=== PATIENT | female | born 1940 | race Caucasian/White ===

== ENCOUNTER 2019-11-01 08:18 | Emergency (ER) | payer MEDICARE, OTHER, SELFPAY ==
[2019-11-01 08:26] VITALS: BP 109/52; PULSE 74; RESP 18; TEMP 36.7; O2SAT 98
--- NOTE | 2019-11-01 08:41 | ED.FALL ---
HPI - Fall General Chief Complaint: Fall Stated Complaint: fall, states possible stitches needed lt elbow Time Seen by Provider: 11/01/19 08:26 Source: patient Mode of arrival: Ambulatory History of Present Illness HPI Narrative: 79-year-old woman with a history of hypertension was helping her move some deck furniture and stumbled off a walkway falling and landing on her left elbow suffering a laceration to that elbow and some scratches to her legs. She is not complaining of neck back buttock or hip pain she was able to get up by herself and walk into the emergency department. She states that she was in her usual state of good health until this mechanical tumble. She clearly states she did not hit her head and she is not anticoagulated. She is able to fully extend the left elbow with some tenderness. She is neurovascularly intact. Related Data Home Medications Medication Instructions Recorded Confirmed simvastatin [Zocor] #0 08/23/16 Previous Rx's Medication Instructions Recorded cephalexin [Keflex] 500 mg PO TID #21 cap 11/01/19 Allergies Allergy/AdvReac Type Severity Reaction Status Date / Time amoxicillin [From AUGMENTIN] Allergy Unknown Verified 11/01/19 08:54 clavulanic acid Allergy Unknown Verified 11/01/19 08:54 [From AUGMENTIN] Penicillins [PENICILLINS] Allergy Unknown Verified 11/01/19 08:54 Review of Systems Review of Systems Narrative: Pertinent positive and negative findings as per HPI Remainder of review of systems is otherwise unremarkable for Constitutional: Fevers, chills, weakness ENT: No sore throat, neck pain, ear pain CV: Chest pain, palpitations, dyspnea on exertion Respiratory: Cough, wheeze, dyspnea GI: Nausea, vomiting, diarrhea, change in bowel habits, black or bloody stools : Dysuria, hematuria, flank pain MS: Muscle weakness, numbness, joint swelling or warmth Patient History Medical History (Updated 11/01/19 @ 10:53 by Halle East MD) Hyperlipidemia (Acute) Exam Narrative Exam Narrative: General: Healthy appearing, in no acute distress. Able to give a complete and coherent history. Well-nourished well-developed HEENT: Moist mucous membranes, normal sclera with reactive pupils, Neck: supple, no C-spine tenderness to palpation Respiratory: Lungs are clear to auscultation, no wheezing no rales no rhonchi. Full and symmetrical air movement Cardiac: Regular rate and rhythm no murmurs no bruits Abdomen: Soft nontender good bowel tones, no flank pain Skin: Warm and dry, laceration over the left olecranon, abrasion over the left alberto, minor abrasions posterior left alberto and anterior right alberto Neurologic: Grossly neurologically intact with no obvious asymmetries or abnormalities Extremities: Tender with full range of motion of the left elbow but is able to fully extend and fully flex. No shoulder tenderness on the left side left hand and wrist are unremarkable she is neurovascularly intact. Spine and pelvis: No tenderness to palpation along the thoracic or lumbar spine or with pelvic ring compression Psych: Cooperative, appropriate insight and affect Initial Vital Signs Initial Vital Signs: Vital Signs Temperature 98.0 F 11/01/19 08:26 Pulse Rate 74 11/01/19 08:26 Respiratory Rate 18 11/01/19 08:26 Blood Pressure 109/52 L 11/01/19 08:26 Pulse Oximetry 98 11/01/19 08:26 Procedures Laceration Repair Laceration 1: Site: upper extremity Side (If applicable): left Size (cm): 4 Description: linear Depth: simple, single layer Local Anesthetic: with bicarb Pre-repair: wound explored, irrigated extensively and deep structures intact Skin layer closed with: nylon Size (cm): 4-0 Number of sutures: 6 Technique: simple, interrupted and horizontal mattress Course Orders Ordered: ED Orders 11/01/19 08:49 XR elbow LT min 3V Stat Discontinued Medications Bacitracin (Bacitracin) 5 applic TOP NOW ONE Stop: 11/01/19 08:51 Last Admin: 11/01/19 08:55 Dose: 5 applic Documented by: JOSI Diphtheria/Tetanus/Acell Pertussis (Adacel) 0.5 ml IM .ONCE ONE Stop: 11/01/19 08:50 Last Admin: 11/01/19 08:54 Dose: 0.5 ml Documented by: JOSI Lidocaine/Sodium Bicarbonate (Buffered Lidocaine 5ml Syringe) 5 ml INJ NOW ONE Stop: 11/01/19 08:56 Last Admin: 11/01/19 09:21 Dose: Not Given Documented by: JOSI Lidocaine/Sodium Bicarbonate (Buffered Lidocaine 10 Ml Syr) 10 ml INJ NOW ONE Stop: 06/27/20 09:03 Last Admin: 11/01/19 09:21 Dose: 10 ml Documented by: KDWIGHT Vital Signs Vital signs: Vital Signs - 8 hr 11/01/19 08:26 Temperature 98.0 F Pulse Rate 74 Respiratory Rate 18 Blood Pressure 109/52 L Pulse Oximetry 98 Discharge Plan Departure Patient Disposition: Home Clinical Impression: Laceration Fall Qualifiers: Encounter type: initial encounter Qualified Code(s): W19.XXXA - Unspecified fall, initial encounter Instructions: DI for Laceration Repair -- Simple Activity Restrictions/Additional Instructions: Thank you for coming in today I am so sorry you ended up falling. The cut on your elbow had a small bit of debris that was easily removed with the thorough cleaning that was done prior to putting in the stitches. Carefully examining the wound once it was numb, it does not look like it extends deeper or into the elbow joint. However, there is always a concern for that. Because of this, I am going to suggest that you take 5 days of Keflex, an antibiotic. Please return in 10 days to have the sutures removed There did not seem to be any further damage with your fall but I would not be surprised if you find increasing aches and pains over the next 1-2 days before you start healing fully. If you have any increased pain or difficulty with moving her elbow, increased swelling or pain with moving your fingers or flexing your wrist, you absolutely need to return for further evaluation. I hope you heal quickly Prescriptions: New cephalexin [Keflex] 500 mg capsule 500 mg PO TID Qty: 21 RF: 0 No Action simvastatin [Zocor] 40 MG tablet Qty: 0 RF: 0 Referrals: Henry Mcfadden MD [Primary Care Provider] -
--- NOTE | 2019-11-01 08:49 | DI.RAD.S_ITS ---
PROCEDURE: XR ELBOW LT MIN 3V INDICATIONS: trauma TECHNIQUE: 3 views of the elbow were acquired. COMPARISON: None. FINDINGS: Bones: No fractures or dislocations. No suspicious bony lesions. Soft tissues: No elbow joint effusion. No suspicious soft tissue calcifications. IMPRESSION: No evidence acute bony abnormality of the left elbow. If clinical suspicion and/or symptoms persist, further assessment with repeat plain films, or advanced imaging (e.g., CT, MRI, or bone scan) may be helpful for further assessment. Dictated by: Bienvenido Ansari M.D. on 11/01/2019 at 8:11 Approved by: Bienvenido Ansari M.D. on 11/01/2019 at 8:13
[2019-11-01] MEDS: TET,DIPH,PERTUSS(ACELL),VAC/PF 0.5 ML SYRINGE IM (08:54)
[2019-11-01] MEDS: BACITRACIN OINT 0.9 GM PCKT 5 APPLIC TOP (08:55)
[2019-11-01] MEDS: LIDO 1%/SOD BICARB 8.4% (10ML) 10 ML SYRINGE INJ (09:21)
[2019-11-01 10:58] VITALS: BP 166/69; PULSE 63; O2SAT 97
== END 2019-11-01 11:01 | disposition home or self-care (01) ==
PROVIDERS: Emergency Provider Emergency Medicine; Family Provider Family Medicine; PCP Family Medicine
DX: S51.012A Laceration without foreign body of left elbow, initial encounter (principal); W19.XXXA Unspecified fall, initial encounter; Z23 Encounter for immunization
CPT/HCPCS: 12002; 73080; 90471; 99283; 90715

== ENCOUNTER 2019-11-08 11:21 | Emergency (ER) | payer MEDICARE, OTHER, SELFPAY ==
[2019-11-08 11:50] VITALS: BP 171/82; PULSE 67; RESP 18; TEMP 36.7; O2SAT 96
--- NOTE | 2019-11-08 12:24 | PC.NURSE ---
defer assessment to provider assessment. Unable to visualize wound before patient dressed and discharged.
--- NOTE | 2019-11-08 12:26 | ED_ITS ---
HPI - Wound/Laceration <NAHED Ureña-BC - Last Filed: 11/08/19 14:46> General Chief Complaint: Wound/Laceration Stated Complaint: Leg wounds from last week not healing Time Seen by Provider: 11/08/19 11:43 Source: patient and family Mode of arrival: Family Vehicle Limitations: no limitations History of Present Illness HPI narrative: The patient is an 79-year-old female former smoker who presents with a chief complaint of leg wounds not healing from her fall and visit last week. She states that she is overall very healthy, had a ground level fall and came into the emergency department on 11/01/2019. She has multiple leg abrasions, that she states are becoming infected with spreading redness. She denies any fevers nausea vomiting or diarrhea. She states her tetanus is up-to- date last week. She states that she took antibiotics as prescribed by the previous provider, that she was given a prescription for a week. She has been cleansing her wound several times per day with hydrogen peroxide. The patient states that she is supposed to have her elbow sutures out on Sunday, would like me to do that today possible. Related Data Home Medications Medication Instructions Recorded Confirmed simvastatin [Zocor] #0 08/23/16 Previous Rx's Medication Instructions Recorded cephalexin [Keflex] 500 mg PO TID #21 cap 11/01/19 cephalexin 500 mg PO TID 3 Days #9 cap 11/08/19 Allergies Allergy/AdvReac Type Severity Reaction Status Date / Time amoxicillin [From AUGMENTIN] Allergy Unknown Verified 11/01/19 08:54 clavulanic acid Allergy Unknown Verified 11/01/19 08:54 [From AUGMENTIN] Penicillins [PENICILLINS] Allergy Unknown Verified 11/01/19 08:54 Review of Systems <NAHED Ureña-BC - Last Filed: 11/08/19 14:46> Review of Systems Narrative: GENERAL: Denies chills, fatigue, malaise, fever, sweats. HEENT: Denies sinus pain, ear pain, sore throat, difficulty swallowing, dizziness. RESPIRATORY: Denies dyspnea, cough, wheezing, hemoptysis, sputum. CARDIOVASCULAR: Denies chest pain, palpitations, orthopnea, edema, GASTROINTESTINAL: Denies nausea, vomiting, abdominal pain, diarrhea, constipatio n, melena. : Denies dysuria, frequency, incontinence, hematuria, urinary retention. MUSCULOSKELETAL: denies weakness, joint pain, or bony pain SKIN: See HP NEUROLOGIC: Denies weakness, headache, numbness, change in speech, confusion, seizures, incoordination. PSYCHIATRIC: No concerning psychosocial issues. 12 point review of systems is negative except for those stated above Patient History <BRITNEY Ureña - Last Filed: 11/08/19 14:46> Medical History Hyperlipidemia (Acute) Social History Smoking Status: Former smoker Smoking Status: Former smoker alcohol intake frequency: 0-2 drinks per day Alcohol type: wine Substance Use Type: does not use Exam <BRITNEY Ureña - Last Filed: 11/08/19 14:46> Narrative Exam Narrative: GENERAL: This is a well-nourished, well-developed patient, in no acute distress HEAD: Atraumatic. Normocephalic. No temporal or scalp tenderness. EYES: Pupils equal round and reactive. Extraocular motions intact. No scleral icterus. No injection or drainage. ENT: Nose without bleeding, purulent drainage or septal hematoma. Throat without erythema, tonsillar hypertrophy or exudate. Uvula midline. Airway patent. NECK: Trachea midline. No JVD or lymphadenopathy. Supple, nontender, no meningeal signs. CARDIOVASCULAR: Regular rate and rhythm RESPIRATORY: Clear to auscultation. Breath sounds equal bilaterally. No wheezes, rales, or rhonchi. No cough. No increased respiratory effort. No accessory muscle use. EXTREMITIES: Sutures in place over left elbow, full extension and flexion noted for elbow. Wounds noted on bilateral lower extremities, abrasions noted on medial aspect of left lower leg, two abrasions noted on medial aspect of left lower leg. Superior left lower leg abrasion has 1 cm surrounding erythema, right lower leg abrasion also has 1 cm surrounding erythema. No purulent drainage noted. NEURO: AOx3. SKIN: See extremity exam Initial Vital Signs Initial Vital Signs: Vital Signs Temperature 98.1 F 11/08/19 11:50 Pulse Rate 67 11/08/19 11:50 Respiratory Rate 18 11/08/19 11:50 Blood Pressure 171/82 H 11/08/19 11:50 Pulse Oximetry 96 11/08/19 11:50 <Luis Alfredo Gordon MD - Last Filed: 11/09/19 07:24> Initial Vital Signs Initial Vital Signs: Vital Signs Temperature 98.1 F 11/08/19 11:50 Pulse Rate 67 11/08/19 11:50 Respiratory Rate 18 11/08/19 11:50 Blood Pressure 171/82 H 11/08/19 11:50 Pulse Oximetry 96 11/08/19 11:50 Course <BRITNEY Ureña - Last Filed: 11/08/19 14:46> Orders Ordered: ED Orders 11/08/19 11:51 Wound Culture and Gram Stain Stat Vital Signs Vital signs: Vital Signs - 8 hr 11/08/19 11:50 Temperature 98.1 F Pulse Rate 67 Respiratory Rate 18 Blood Pressure 171/82 H Pulse Oximetry 96 <Luis Alfredo Gordon MD - Last Filed: 11/09/19 07:24> Orders Ordered: ED Orders 11/08/19 11:51 Wound Culture and Gram Stain Stat Vital Signs Vital signs: Vital Signs - 8 hr 11/08/19 11:50 Temperature 98.1 F Pulse Rate 67 Respiratory Rate 18 Blood Pressure 171/82 H Pulse Oximetry 96 MDM - Wound/Laceration <BRITNEY Ureña - Last Filed: 11/08/19 14:46> MDM Narrative Medical decision making narrative: The patient is an 79-year-old female who presents with a chief complaint of wound is not healing. She also requested that I remove her sutures that are supposed to be removed on Sunday. Given that these are over the joint, encouraged her to wait until the sutures are supposed to come out due to the increased tension. She is amendable to this. Given the surrounding redness from her abrasions, these might be due to being copiously cleansed with hydrogen peroxide as that can be caustic to wounds. However given her exam of increasing redness, I did extend her course of t reatment with Keflex to a full 10 day course. I discussed at length not using hydrogen peroxide, keeping her wounds clean and dry, not soaking them, not submerging in dirty water. Encouraged follow-up with primary care provider as well as monitoring for signs and symptoms of systemic infection including inability keep down fluids, high fevers etcetera. Patient has been of no questions or concerns upon discharge and state understanding of return precautions as well as follow-up care. Discharge Plan Departure Patient Disposition: Home Clinical Impression: Abrasion, Wound infection Discharge Date/Time: 11/08/19 12:23 Instructions: DI for Wound Infection Activity Restrictions/Additional Instructions: Thank you for trusting us with your care today. I am sorry that you fell, it appears as though your elbow was healing well. I am sorry that your leg abrasions are not healing very well at this point. I sent a prescription to [facility] to continue antibiotics for a few more days. We have a wound culture pending, we will call this results if we need to change your antibiotics. Please stop using hydrogen peroxide as this is very abrasive on wounds. This can actually impede wound healing. Please take a probiotic or yogurt with the antibiotic. Please wash her wounds with soap and water. Do not soak them in anything, do not expose them to dirty water including pool water Simeon water etcetera. Please monitor for fever etcetera come back to the emergency department for any acute concerns Prescriptions: New cephalexin 500 mg capsule 500 mg PO TID 3 Days Qty: 9 RF: 0 No Action simvastatin [Zocor] 40 MG tablet Qty: 0 RF: 0 cephalexin [Keflex] 500 mg capsule 500 mg PO TID Qty: 21 RF: 0 Referrals: Henry Mcfadden MD [Primary Care Provider] -
== END 2019-11-08 12:23 | disposition home or self-care (01) ==
PROVIDERS: Emergency Provider Nurse Practitioner Family; Family Provider Family Medicine; PCP Family Medicine
DX: T81.89XA Other complications of procedures, not elsewhere classified, initial encounter (principal); S80.812A Abrasion, left lower leg, initial encounter
CPT/HCPCS: 87070; 87205; 99281; 99282

== ENCOUNTER 2019-11-11 07:37 | Emergency (ER) | payer MEDICARE, OTHER, SELFPAY ==
[2019-11-11 07:43] VITALS: BP 160/67; PULSE 66; RESP 14; TEMP 37.1; O2SAT 97; BMI 27.4
--- NOTE | 2019-11-11 07:55 | ED.RECABL ---
HPI - Recheck/Abnormal Lab/Rx General Chief Complaint: Recheck/Abnormal Lab/Rx Stated Complaint: STITCHES REMOVAL,CHECK ON LEGS Time Seen by Provider: 11/11/19 07:55 Source: patient Mode of arrival: Ambulatory History of Present Illness HPI narrative: The patient is an 79-year-old female who presents will for suture removal. She had 4 sutures placed on her left elbow 11/01/2019. Has been move some deck furniture when she stumbled off and cut herself. She also had some lower extremity leg wounds she was concerned they might be infected. She was here on November 07 for re-evaluation and started on Keflex. She has been keeping the areas clean and dry with no bandage. However there is still some surrounding erythema and is worried it still might be infected. She denies any fever sweats or chills. She has no complaints about her elbow. MD complaint: suture/staple removal Initial visit (ago): week(s) Initial visit for: laceration Returns today for: staple/stitch removal and wound recheck Related Data Home Medications Medication Instructions Recorded Confirmed simvastatin [Zocor] #0 08/23/16 Previous Rx's Medication Instructions Recorded cephalexin [Keflex] 500 mg PO TID #21 cap 11/01/19 Allergies Allergy/AdvReac Type Severity Reaction Status Date / Time amoxicillin [From AUGMENTIN] Allergy Unknown Verified 11/11/19 07:42 clavulanic acid Allergy Unknown Verified 11/11/19 07:42 [From AUGMENTIN] Penicillins [PENICILLINS] Allergy Unknown Verified 11/11/19 07:42 Review of Systems Review of Systems Narrative: GENERAL: Denies chills,fever HEENT: Denies throat pain RESPIRATORY: Denies dyspnea, cough, wheezing CARDIOVASCULAR: Denies chest pain, palpitations GASTROINTESTINAL: Denies nausea, vomiting MUSCULOSKELETAL: Denies extremity pain, injury SKIN: See HPI NEUROLOGIC: Denies weakness, dizziness, headache, numbness 8 point review of systems is negative except for those stated above and HPI Patient History Medical History Hyperlipidemia (Acute) Social History Smoking Status: Former smoker Smoking Status: Former smoker alcohol intake frequency: 0-2 drinks per day Alcohol type: wine Substance Use Type: does not use Exam Initial Vital Signs Initial Vital Signs: Vital Signs Temperature 98.7 F 11/11/19 07:43 Pulse Rate 66 11/11/19 07:43 Respiratory Rate 14 11/11/19 07:43 Blood Pressure 160/67 H 11/11/19 07:43 Pulse Oximetry 97 11/11/19 07:43 GENERAL: Well-appearing, well-nourished and in no acute distress. CARDIOVASCULAR: peripheral pulses in tact, cap refill <2 sec RESPIRATORY: No respiratory distress, speaks in full sentences without difficulty EXTREMITIES: Normal range of motion, no clubbing or edema. Neurovascularly intact NEUROLOGICAL: Cranial nerves II through XII grossly intact. Normal gait and speech. SKIN: Left elbow wound has healed no sign of infection sutures are easily removed. The legs are also waited she has wound on her left lower leg and 2 small areas on her right leg. All areas are scabbed over there is some mild local surrounding erythema no gross pus no streaking or circumferential redness Course Vital Signs Vital signs: Vital Signs - 8 hr 11/11/19 07:43 Temperature 98.7 F Pulse Rate 66 Respiratory Rate 14 Blood Pressure 160/67 H Pulse Oximetry 97 MDM - Recheck/Abnormal Lab/Rx MDM Narrative Medical decision making narrative: Wounds all seem to be healing appropriately at this time I recommend continuing Keflex Discharge Plan Departure Patient Disposition: Home Clinical Impression: Encounter for removal of sutures Discharge Date/Time: 11/11/19 08:15 Instructions: DI for Suture Removal Activity Restrictions/Additional Instructions: *You have been diagnosed with suture removal *What to do: At this time wounds appear to be healing I recommend that he finish in continue Keflex as previously prescribed keep areas clean and dry with soap and water may apply antibiotic ointment 1-2 times daily *Continue to take medications as directed *Follow up with your primary care provider in 2-3 days *Return to ER if you should have fevers sweats chills increasing redness or any new, worsening or concerning symptoms Prescriptions: No Action simvastatin [Zocor] 40 MG tablet Qty: 0 RF: 0 cephalexin [Keflex] 500 mg capsule 500 mg PO TID Qty: 21 RF: 0
== END 2019-11-11 08:15 | disposition home or self-care (01) ==
PROVIDERS: Emergency Provider Emergency Medicine; Family Provider Family Medicine
DX: Z48.1 Encounter for planned postprocedural wound closure (principal)
CPT/HCPCS: 99281

== ENCOUNTER 2021-02-23 14:37 | Emergency (ER) | payer MEDICARE, OTHER, SELFPAY ==
[2021-02-23 14:50] VITALS: BP 162/69; PULSE 54; RESP 14; TEMP 36.3; O2SAT 98; BMI 28.7
--- NOTE | 2021-02-23 14:56 | DI.RAD.S_ITS ---
PROCEDURE: XR HAND RT MIN 3V INDICATIONS: Right wrist and hand pain TECHNIQUE: 3 views of the hand(s) acquired. COMPARISON: None. FINDINGS: Bones: No fractures or dislocations. Diffuse mild joint space loss with osteophytosis, most prominent involving the distal interphalangeal joints. Carpal bones are normally aligned. No suspicious bony lesions. Minimal cortical irregularity of the radial styloid, compatible with remote injury. Soft tissues: No suspicious soft tissue calcifications. IMPRESSION: No acute osseous abnormality. Dictated by: Se Moran M.D. on 02/23/2021 at 16:30 Approved by: Se Moran M.D. on 02/23/2021 at 16:32
--- NOTE | 2021-02-23 14:56 | DI.RAD.S_ITS ---
PROCEDURE: XR WRIST RT MIN 3V INDICATIONS: wrist and hand pain/NON INJURY TECHNIQUE: 4 views of the wrist were acquired. COMPARISON: None. FINDINGS: Bones: No fractures or dislocations. No suspicious bony lesions. Mild triscaphe joint space narrowing and subchondral sclerosis. Scaphoid view: Unremarkable Soft tissues: No suspicious soft tissue calcifications. IMPRESSION: Mild intercarpal osteoarthritis. No fracture or foreign body. Approved by: Miguel Inman M.D. on 02/23/2021 at 14:57
--- NOTE | 2021-02-23 15:58 | ED.UPPEXIN ---
HPI - Extremity Injury (Upper) <SHADIA Troncoso - Last Filed: 02/23/21 19:57> General Chief Complaint: Extremity Injury, Upper Stated Complaint: RT hand pain Time Seen by Provider: 02/23/21 15:23 Source: patient Mode of arrival: Ambulatory Limitations: no limitations History of Present Illness HPI narrative: 80 year old right-handed female presents to the emergency department for right thumb and right wrist pain which has been present for 1 month. She reports that this feels like an overuse injury as her pain is worse after activity like gardening and chores and she stays very active. She reports that the pain goes from her proximal metacarpal up the radial side of her wrist. She states that she does have a history of osteoarthritis, does not know if she has bone scan in the past. She denies having any weakness in her right upper extremity, she does endorse having some numbness and tingling after a lot of activity in the 1st through 3rd digits. She reports that her pain and symptoms are better with rest, it worsens with activity. This is affecting her quality of life. MD complaint: injury to: right Handedness: right Place: home Severity: moderate Severity scale (1-10): 5 Relieving factors: immobilization and rest Exacerbating factors: movement of extremity Related Data Home Medications Medication Instructions Recorded Confirmed simvastatin 40 mg tablet (Zocor) #0 08/23/16 Previous Rx's Medication Instructions Recorded cephalexin 500 mg capsule (Keflex) 500 mg PO TID #21 cap 11/01/19 Allergies Allergy/AdvReac Type Severity Reaction Status Date / Time amoxicillin [From AUGMENTIN] Allergy Unknown Verified 02/23/21 14:52 clavulanic acid Allergy Unknown Verified 02/23/21 14:52 [From AUGMENTIN] Penicillins [PENICILLINS] Allergy Unknown Verified 02/23/21 14:52 Review of Systems <SHADIA Troncoso - Last Filed: 02/23/21 19:57> Review of Systems Narrative: General: denies fever, chills Head/Neck: denies headache, neck pain, Eyes: denies visual changes, eye pain Cardio: denies chest pain, palpitations Respiratory: denies shortness of breath, cough GI: denies abdominal pain, or diarrhea : denies dysuria, hematuria MSK: Complains of right proximal thumb pain and right wrist pain, denies muscle weakness Skin: denies rash, itching Neuro: denies numbness, tingling Patient History <SHADIA Troncoso - Last Filed: 02/23/21 19:57> Medical History Hyperlipidemia Social History Smoking Status: Former smoker Smoking Status: Former smoker alcohol intake frequency: holidays/special occasions only Alcohol type: wine Substance Use Type: does not use Exam <SHADIA Troncoso - Last Filed: 02/23/21 19:57> Narrative Exam Narrative: Independently reviewed vitals signs and nursing notes. General: Awake, alert, nontoxic, no cardiorespiratory distress Head/Neck: Atraumatic, neck full range of motion Eyes: EOMI, conjunctiva normal Nose: nares patent, no rhinorrhea Mouth/Throat: moist mucus membranes, posterior pharynx normal, no oral lesions Cardio: Regular rate and rhythm, no peripheral edema Respiratory: respirations unlabored without wheezing, stridor, or rales. No retractions. GI: Abdomen soft, nontender MSK: Moves all extremities, neurovascularly intact, no limitations to ROM on right upper extremity, no numbness or tingling during exam, capillary refill less than 2 seconds on all fingers, mild amount of edema over distal radial head where it meets the carpal bones. Right wrist is nontender to palpation, no pain at snuffbox, no suspicion for tendon injury Skin: Normal capillary refill, no rash Neuro: Normal speech and cognition, normal gait Initial Vital Signs Initial Vital Signs: Vital Signs Temperature 97.4 F L 02/23/21 14:50 Pulse Rate 54 L 02/23/21 14:50 Respiratory Rate 14 02/23/21 14:50 Blood Pressure 162/69 H 02/23/21 14:50 Pulse Oximetry 98 02/23/21 14:50 <Francisco J Hobson DO - Last Filed: 02/24/21 18:43> Initial Vital Signs Initial Vital Signs: Vital Signs Temperature 97.4 F L 02/23/21 14:50 Pulse Rate 54 L 02/23/21 14:50 Respiratory Rate 14 02/23/21 14:50 Blood Pressure 162/69 H 02/23/21 14:50 Pulse Oximetry 98 02/23/21 14:50 Procedures <SHADIA Troncoso - Last Filed: 02/23/21 19:57> Orthopedic Splinting/Casting Injury #1: Side: right Upper Extremity Injury Location: wrist Upper Extremity Immobilizer: wrist splint Post splinting neuro exam: intact Post splinting vascular exam: intact Placed by: Nursing Course <SHADIA Troncoso - Last Filed: 02/23/21 19:57> Orders Ordered: Discontinued Medications Ibuprofen (Ibuprofen 400 Mg Tablet) 600 mg PO NOW ONE Stop: 02/23/21 16:06 Last Admin: 02/23/21 16:18 Dose: 600 mg Documented by: KATE Vital Signs Vital signs: Vital Signs - 8 hr 02/23/21 14:50 02/23/21 16:43 Temperature 97.4 F L Pulse Rate 54 L 53 L Respiratory Rate 14 Blood Pressure 162/69 H 157/65 H Pulse Oximetry 98 99 <Francisco J Hobson DO - Last Filed: 02/24/21 18:43> Orders Ordered: Discontinued Medications Ibuprofen (Ibuprofen 400 Mg Tablet) 600 mg PO NOW ONE Stop: 02/23/21 16:06 Last Admin: 02/23/21 16:18 Dose: 600 mg Documented by: KATE Vital Signs Vital signs: Vital Signs - 8 hr 02/23/21 14:50 02/23/21 16:43 Temperature 97.4 F L Pulse Rate 54 L 53 L Respiratory Rate 14 Blood Pressure 162/69 H 157/65 H Pulse Oximetry 98 99 MDM - Extremity Injury (Upper) <SHADIA Troncoso - Last Filed: 02/23/21 19:57> Imaging Data Extremity x-ray #1: Radiologist's Impression: PROCEDURE: XR HAND RT MIN 3V INDICATIONS: Right wrist and hand pain TECHNIQUE: 3 views of the hand(s) acquired. COMPARISON: None. FINDINGS: Bones: No fractures or dislocations. Diffuse mild joint space loss with osteophytosis, most prominent involving the distal interphalangeal joints. Carpal bones are normally aligned. No suspicious bony lesions. Minimal cortical irregularity of the radial styloid, compatible with remote injury. Soft tissues: No suspicious soft tissue calcifications. IMPRESSION: No acute osseous abnormality. Dictated by: Se Moran M.D. on 02/23/2021 at 16:30 Approved by: Se Moran M.D. on 02/23/2021 at 16:32 Extremity x-ray #2: Radiologist's Impression: PROCEDURE: XR WRIST RT MIN 3V INDICATIONS: wrist and hand pain/NON INJURY TECHNIQUE: 4 views of the wrist were acquired. COMPARISON: None. FINDINGS: Bones: No fractures or dislocations. No suspicious bony lesions. Mild triscaphe joint space narrowing and subchondral sclerosis. Scaphoid view: Unremarkable Soft tissues: No suspicious soft tissue calcifications. IMPRESSION: Mild intercarpal osteoarthritis. No fracture or foreign body. Approved by: Miguel Inman M.D. on 02/23/2021 at 14:57 MDM Narrative Medical decision making narrative: 80-year-old female presents to the emergency department for right thumb and wrist pain that has been bothersome after heavy use for 1 month. Right hand and right wrist x-rays show no fractures or dislocations, diffuse mild joint space loss with osteophytosis, mild intercarpal osteoarthritis without fractures. This is most likely osteoarthritis related to overuse although tendinitis is also high my differential. Recommended patient to follow-up with her PCP for follow-up and further evaluation of her symptoms. Differential also includes gout, septic arthritis although very low suspicion for that. There are no signs of flexor tenosynovitis, none of [place] signs are present, in that, the affected hand/wrist is not held in flexion. The hand/wrist is not uniformly swollen over the affected tendons. There is no tenderness over the palpated tendon. There is no pain on passive extension of the affected fingers, hand or wrist. Patient is appropriate and amenable to discharge home. Vital signs are stable on repeat examination is unremarkable. Patient has been informed of results. Patient has been given strict return to ER precautions for any new or worsening symptoms. Patient understands to follow up closely with outpatient providers as instructed. Patient understands plan and agrees to discharge home. All questions and concerns answered at this time. Discharge Plan Departure Patient Disposition: Home Clinical Impression: Osteoarthritis of wrist and hand due to and not concurrent with trauma Instructions: DI for Osteoarthritis Activity Restrictions/Additional Instructions: *You have been diagnosed with osteoarthritis of your wrist and thumb joint. Because your hand x-rays not back from the radiologist yet I cannot say for sure that there is no fracture in your hand however it does not appear that there is a fracture on my read. I think that these are both painful areas related to osteoarthritis, ibuprofen and wearing a wrist splint can be most helpful, as well as using ice intermittently or after heavy use. Please try to have food when you take ibuprofen to prevent an ulcer. Follow-up with your primary care provider about other ways to prevent flares of this pain. *What to do: *Please continue to take your regular medications as directed. [ ] New medication prescriptions sent to your pharmacy: [ ] [ ] New medication written as a paper prescription [ x] No new medications given *Please follow up with your primary care provider in 2-3 days, call for an appointment. Let them know you were seen in the Emergency Department and that we ask that you be seen in follow up. We will electronically transmit a record of today's note if your PCP is in our system *If you do not have a primary care provider please contact the [facility] Resource line at [phone]. They will ask some questions about your medical history and help get you set up with a doctor in the community. *Return to Emergency Department if you should have any new, worsening or concerning symptoms, such as [fever greater than 101F, chills, worsening pain, persistent vomiting or other bothersome symptoms] PROCEDURE: XR WRIST RT MIN 3V INDICATIONS: wrist and hand pain/NON INJURY TECHNIQUE: 4 views of the wrist were acquired. COMPARISON: None. FINDINGS: Bones: No fractures or dislocations. No suspicious bony lesions. Mild triscaphe joint space narrowing and subchondral sclerosis. Scaphoid view: Unremarkable Soft tissues: No suspicious soft tissue calcifications. IMPRESSION: Mild intercarpal osteoarthritis. No fracture or foreign body. Prescriptions: No Action simvastatin [Zocor] 40 MG tablet Qty: 0 RF: 0 cephalexin [Keflex] 500 mg capsule 500 mg PO TID Qty: 21 RF: 0 Referrals: Peace Dhillon MD [Primary Care Provider] - <Francisco J Hobson DO - Last Filed: 02/24/21 18:43> [facility]ign [facility] Attestation: Dr Hobson Co-Sign Statement: I was available for consultation during this patient's emergency department visit. This chart is signed by myself for administrative purposes only. I did not have direct contact with this patient during this visit. They were seen independently by the APC.
[2021-02-23] MEDS: IBUPROFEN 400 MG TABLET 600 MG PO (16:18)
[2021-02-23 16:43] VITALS: BP 157/65; PULSE 53; O2SAT 99
== END 2021-02-23 16:43 | disposition home or self-care (01) ==
PROVIDERS: Emergency Provider Nurse Practitioner Critical Care Medicine; Family Provider Internal Medicine; PCP Internal Medicine
DX: M19.031 Primary osteoarthritis, right wrist (principal); M19.041 Primary osteoarthritis, right hand
CPT/HCPCS: 73110; 73130; 99283; 99284

== ENCOUNTER 2021-05-16 09:00 | Outpatient (RCR) | payer MEDICARE, OTHER, SELFPAY ==
--- NOTE | 2021-02-17 15:48 | PT.OIE ---
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) Dorsalgia, unspecified (02/17/21) Muscle weakness (generalized) (02/17/21) Unsteadiness on feet (02/17/21) Past Medical History (Last Reviewed 11/11/19 @ 07:59 by Grace Jiang DO) Hyperlipidemia Visit Care Team Role Provider Type Peace Dhillon MD Attending Provider Non-Staff Family Provider Primary Care Provider Referring Provider Specialty: Internal Medicine Address: [address] [place] [address], [facility] Email: Physical Therapy Initial Evaluation PT-OP-A Visit Information Start: 02/14/21 17:54 Freq: Status: Active Protocol: Document 02/17/21 13:33 LRN (Rec: 02/17/21 15:44 LRN [id number]) Out-Patient Physical Therapy Visit Information Visit Information Visit Type Initial Evaluation Visit Start Time 13:33 Visit Stop Time 14:39 Total Visit Minutes 56 Visit Number 1 Evaluation Information Evaluation Date 02/17/21 Precautions Precautions Arthritis, back pain, neck pain, falls PT-OP-B Current Condition Start: 02/14/21 17:54 Freq: Status: Active Protocol: Document 02/17/21 13:33 LRN (Rec: 02/17/21 15:44 LRN [id number]) Current Condition History of Current Condition Onset Date 6 months ago Current Complaints Pain across the low back, Can 't sleep, poor balance. History of Current Condition Pain in middle lower back started due to repetitive lifting when trying to help finish building a house (tasks such as painting & vacuuming) and from gardening. Has had X-rays taken at [facility], but report unavailable. Pt reports her lower mid back pain radiates across the back and that it is very limiting in activity. She states her pain is less after doing back exercises that her , a retired neurologist, showed her. She takes Tylenol and an allergy medication for the pain. Has tired ice/heat, and heat seems to be more helpful. Pt requests therapy for her balance. States her balance as of 5 yrs ago is also a problem because she is older and too physically active. Last fall being a yr ago while working on her house and carrying a heavy bench and stepping backwards. Prior Treatments and Tests X-rays at [facility], unavailable. Future Testing and Treatments Planned None Developmental History Developmental History Has severe osteoporsis. Was building a house and was doing gardening for the past year, but the pain started worsening in the past 6 months. Has issue with R hand (dominant hand). Complains of a more noteable bruise on R distal forearm after wearing a wrist brace, and R thumb pain. Pt states she is planning on getting it looked at. Treatment Goals Patient/Caregiver Goals Get in better shape and strengthen the body. Walking can be painful. Sleep through the night without waking due to back pain. Prior Functional Status Baseline Function- Gait Walked 3-5 miles ~ [address] [place] e-5 days a week. Baseline Function- Recreation/Hobbies Gardening. Baseline Function- Other Slept through the night 8-9 hrs/night. Home exercise program shown by spouse (who was a physician - neurologist) - 30 minute program. Current Functional Impairments (Reported) Functional Limitations- ADL's Waking 3-4x/night due to back pain, but able to go back to sleep. Walking 3x/week in neighborhood with 1-2 hills, ~ 1 hr. Personal Factors Other Personal Factors That May Effect Reportedly severe Osteoporosis Therapy/Recovery , Cleans own house (vacuuming that makes pain worse). PT-OP-C Subjective Start: 02/14/21 17:54 Freq: Status: Active Protocol: Document 02/17/21 13:33 LRN (Rec: 02/17/21 15:44 LRN [id number]) Patient Questionnaires Oswestry Low Back Index Oswestry Score 24 Oswestry Impairment 20 to 39% Impaired (Score 20- 39) OP-PT Pain Assessment Pain Assessment Grid Paper Pain Assessment Grid Completed Yes Location Lower Thoracic Pain Location Details Lower thoracic spine across the back, pain ranges 2-7/10 Intensity 7 Scale Used Numeric (0 - 10) Description Aching,Sharp Frequency Intermittent Pain Aggravating Factors Activity Other Pain Aggravating Factors Vacuuming Pain Alleviating Factors Heat,Medication PT-OP-G Mobility & Gait Start: 02/14/21 17:54 Freq: Status: Active Protocol: Document 02/17/21 13:33 LRN (Rec: 02/17/21 15:44 LRN [id number]) Stair Climbing Evaluation Comments Stair Climbing Comments Normal, uses 1 railing. PT-OP-H Neuro Start: 02/14/21 17:54 Freq: Status: Active Protocol: Document 02/17/21 13:33 LRN (Rec: 02/17/21 15:44 LRN [id number]) Sensation Evaluation Gross Sensation Gross Sensation WNL Comments Summary Comments Pt complains of tingling in lower legs and feet. Deep Tendon Reflex & Clonus Assessment Deep Tendon Reflex Right Achilles Deep Tendon Reflex 2+ Normal Left Achilles Deep Tendon Reflex 2+ Normal Right Patellar Deep Tendon Reflex 2+ Normal Left Patellar Deep Tendon Reflex 2+ Normal PT-OP-J Posture/Palpation/Skin Start: 02/14/21 17:54 Freq: Status: Active Protocol: Document 02/17/21 13:33 LRN (Rec: 02/17/21 15:44 LRN [id number]) Posture Evaluation Position Standing T-Spine Posture Flattened L-Spine Posture Increased Lordosis,Shifted Left Shoulder Posture (R) Elevated Scapula Posture (R) Elevated Comments Posture Comments Decreased T/S and mild increase L/S curvature. Palpation Assessment Location Low Back Palpation Location In Prone: Lower T/S & L/S spine; QL, Paraspinals, SIJ. Palpation Findings Soft Tissue Tightness, Tenderness Palpation Details Assessed in Prone: Decreased T/S curvature, Tender PA of spinous processes of T11, T12 and mildly lumbar spine. Pelvis & lumbar spine is in L rotation (L SIJ is set deep). L2, L3 C-curve with apex on left. PT-OP-K Range of Motion Start: 02/14/21 17:54 Freq: Status: Active Protocol: Document 02/17/21 13:33 LRN (Rec: 02/17/21 15:44 LRN [id number]) Lumbar Spine Range of Motion Lumbar Spine Active Degrees Testing Position Standing Flexion 40 Extension 10 Rotation Left 3 Rotation Right 5 Lateral Flexion Left 10 Lateral Flexion Right 3 ROM Limitations Pain Comments Trunk flex is 40 deg's with 30 deg's hip Flexion Trunk Ext is 10 deg's 3 deg's hip Extension Hip Goniometric Range of Motion Hip Right Passive Hip ROM WFL No Testing Position Supine Flexion w/Knee Flexed 115 Straight Leg Raise 40 Internal Rotation 30 External Rotation 20 Left Passive Hip ROM WFL Yes Testing Position Supine Flexion w/Knee Flexed 120 Straight Leg Raise 60 Internal Rotation 25 External Rotation 60 PT-OP-L Special Tests Start: 02/14/21 17:54 Freq: Status: Active Protocol: Document 02/17/21 13:33 LRN (Rec: 02/17/21 15:44 LRN [id number]) Special Tests Lumbar Spine Special Tests Jed Test Results + bilaterally Comments Indicates tight hip flexors Straight Leg Raise Test Results Positive left side Comments 40 deg's left, 80 deg's right, . indicates possible disc involvement PT-OP-M Strength Start: 02/14/21 17:54 Freq: Status: Active Protocol: Document 02/17/21 13:33 LRN (Rec: 02/17/21 15:44 LRN [id number]) Trunk Strength Trunk Manual Muscle Testing Testing Position Supine Core Stabilization Pt not able to maintain core stabilithy with LE MMT. Hip Strength Hip Manual Muscle Testing Right Flexion (L2) 3 Fair Extension (S1) 5 Normal Abduction 3+ Fair+ Left Flexion (L2) 5 Normal Extension (S1) 5 Normal Abduction 5 Normal Adduction 5 Normal Knee Strength Knee Manual Muscle Testing Right Comments Generally 5/5 Left Comments Generally 5/5 Ankle/Foot Strength Ankle and Foot Manual Muscle Testing Right Comments Generally 5/5 Left Comments Generally 5/5 PT-OP-Q Treatments Start: 02/14/21 17:54 Freq: Status: Active Protocol: Document 02/17/21 13:33 LRN (Rec: 02/17/21 15:44 LRN [id number]) Self-Care/Home Management Treatment Education Other Education Pt educated in results of evaluation. Discussed at length goals and plan of care. Pt requests for most of this month that her therapy be only 1x/week, but afterwards can be 1-2x/week with reasons being her availability to being in town and possible visitors during the holidays. PT-OP-T Assessment and Plan Start: 02/14/21 17:54 Freq: Status: Active Protocol: Document 02/17/21 13:33 LRN (Rec: 02/17/21 15:44 LRN [id number]) Physical Therapy Assessment Rehab Potential Rehabilitation Potential Good Evaluation Complexity Number of Personal Factors/Comorbidities 1-2 Number of Body Systems Impaired 4 or More Clinical Presentation at Evaluation Evolving Impairments Impairments Activity Tolerance,Balance, Functional Activities,Pain, Posture,ROM,Sensation,Soft Tissue Mobility,Strength, Transfers Goals Four Impairment Decreased balance making the pt at risk of falling Impairment MANDO = 24; 20-39% impaired function. Single Leg Stance (SLS) w/EO/ hands across chest, wearing tennis shoes is 2 right, 7 left. Short Term Goal (STG) Improve pt's SLS Ability by 10 secs with hands across her chest, wearing tennis shoes. STG Duration 03/17/21 Longterm Goal (LTG) Pt will be able to imiprove SLS to 14 secs (norm for 70-79 yo's with EO 14 secs). LTG Duration 05/18/21 Three Impairment Decreased ability to actively exercise for her health, due to back pain. Short Term Goal (STG) Iimprove pt awareness of proper movement with her HEP to prevent increased back pain and dysfunction with exercise . STG Duration Scrap Hoist Operator Goal (LTG) Walked 3-5 miles ~ [address] 3-5 days a week. LTG Duration 05/18/21 Two Impairment Back pain interrupts sleep at night (wakes 3-5x/night). Short Term Goal (STG) Pt educated in sleeping positons to decrease number of times she wakes at night. STG Duration 02/23/21 Longterm Goal (LTG) Improve abdominal strength with pt able to maintain core stability with movement and resistance to LE's in supine in order for the pt to be able to sleep through the night without waking due to back pain. LTG Duration 05/18/21 One Impairment Lacks appropriate self care HEP. Short Term Goal (STG) Pt will be educated in proper body mechanics for ADLs and transfers. STG Duration 03/03/21 Longterm Goal (LTG) Pt will be independent with a self care HEP. 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 She also presents with very limited hip mobility (ext, IR, ER) and weakness of the core and mildly in the R hip. She has pain in her thoracic and lumbar spine to a mild degree, but increased tenderness to posterior to anterior pressure at T11 & T12 . Treatment will be limited to AROM until results of her X -rays can be obtained to rule out history of any spinal fractures. The pt does have decreased SLS balance ability of 3-7 secs, placing her at risk of falling and further injury; therefore the pt will benefit from skilled physical therapy to work towards the above stated goals. Physical Therapy Plan Frequency and Duration Frequency of Treatment 2x/Week Plan of Care Start Date 02/17/21 Plan of Care End Date 05/18/21 Therapeutic Interventions Therapeutic Interventions Aquatic Therapy,Balance Training,Gait Training,Home Exercise Program,Manual Therapy,Neuromuscular Re- education,Patient/Caregiver Education,Self-Care/Home Management,Soft Tissue Mobilization,Therapeutic Activities,Therapeutic Exercises Modalities Cold Pack/Ice Massage,Electric Stimulation,Hot Packs, Ultrasound Next Visit Focus/Plan Next Note Type Treatment Note Next Visit Plan Assess gait; Check Hip ER/IR strength & manual lumbar traction/axial compression; Sleeping posture education/ modification; Modify HEP for possible L/S neural involvement & Sciatic pain; Pt education/training in proper body mechanics for ADLs & transfers; Rboby extension program; Core stabilization program; HEP (SLS, R > L hip ER stretch , Waylon hip IR stretch); RLE neural stretch and Waylon Piriformis stretch, Modalities as needed for pain, Try MH/IFES after exercise if X-rays show no fractures.
--- NOTE | 2021-02-17 15:51 | PT.OPPOC ---
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) Dorsalgia, unspecified (02/17/21) Muscle weakness (generalized) (02/17/21) Unsteadiness on feet (02/17/21) Visit Care Team Role Provider Type Peace Dhillon MD Attending Provider Non-Staff Family Provider Primary Care Provider Referring Provider Specialty: Internal Medicine Address: [address] [place] [address], [facility] Email: Plan Of Care PT-OP-T Assessment and Plan Start: 02/14/21 17:54 Freq: Status: Active Protocol: Document 02/17/21 13:33 LRN (Rec: 02/17/21 15:44 LRN [id number]) Physical Therapy Assessment Rehab Potential Rehabilitation Potential Good Evaluation Complexity Number of Personal Factors/Comorbidities 1-2 Number of Body Systems Impaired 4 or More Clinical Presentation at Evaluation Evolving Impairments Impairments Activity Tolerance,Balance, Functional Activities,Pain, Posture,ROM,Sensation,Soft Tissue Mobility,Strength, Transfers Goals Four Impairment Decreased balance making the pt at risk of falling Impairment MANDO = 24; 20-39% impaired function. Single Leg Stance (SLS) w/EO/ hands across chest, wearing tennis shoes is 2 right, 7 left. Short Term Goal (STG) Improve pt's SLS Ability by 10 secs with hands across her chest, wearing tennis shoes. STG Duration 03/17/21 Care Home Goal (LTG) Pt will be able to imiprove SLS to 14 secs (norm for 70-79 yo's with EO 14 secs). LTG Duration 05/18/21 Three Impairment Decreased ability to actively exercise for her health, due to back pain. Short Term Goal (STG) Iimprove pt awareness of proper movement with her HEP to prevent increased back pain and dysfunction with exercise . STG Duration Care Home Goal (LTG) Walked 3-5 miles ~ [address] [place] 3-5 days a week. LTG Duration 05/18/21 Two Impairment Back pain interrupts sleep at night (wakes 3-5x/night). Short Term Goal (STG) Pt educated in sleeping positons to decrease number of times she wakes at night. STG Duration 02/23/21 Imaging Technician Goal (LTG) Improve abdominal strength with pt able to maintain core stability with movement and resistance to LE's in supine in order for the pt to be able to sleep through the night without waking due to back pain. LTG Duration 05/18/21 One Impairment Lacks appropriate self care HEP. Short Term Goal (STG) Pt will be educated in proper body mechanics for ADLs and transfers. STG Duration 03/03/21 Imaging Technician Goal (LTG) Pt will be independent with a self care HEP. 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 She also presents with very limited hip mobility (ext, IR, ER) and weakness of the core and mildly in the R hip. She has pain in her thoracic and lumbar spine to a mild degree, but increased tenderness to posterior to anterior pressure at T11 & T12 . Treatment will be limited to AROM until results of her X -rays can be obtained to rule out history of any spinal fractures. The pt does have decreased SLS balance ability of 3-7 secs, placing her at risk of falling and further injury; therefore the pt will benefit from skilled physical therapy to work towards the above stated goals. Physical Therapy Plan Frequency and Duration Frequency of Treatment 2x/Week Plan of Care Start Date 02/17/21 Plan of Care End Date 05/18/21 Therapeutic Interventions Therapeutic Interventions Aquatic Therapy,Balance Training,Gait Training,Home Exercise Program,Manual Therapy,Neuromuscular Re- education,Patient/Caregiver Education,Self-Care/Home Management,Soft Tissue Mobilization,Therapeutic Activities,Therapeutic Exercises Modalities Cold Pack/Ice Massage,Electric Stimulation,Hot Packs, Ultrasound Next Visit Focus/Plan Next Note Type Treatment Note Next Visit Plan Assess gait; Check Hip ER/IR strength & manual lumbar traction/axial compression; Sleeping posture education/ modification; Modify HEP for possible L/S neural involvement & Sciatic pain; Pt education/training in proper body mechanics for ADLs & transfers; Robby extension program; Core stabilization program; HEP (SLS, R > L hip ER stretch , Waylon hip IR stretch); RLE neural stretch and Waylon Piriformis stretch, Modalities as needed for pain, Try MH/IFES after exercise if X-rays show no fractures. Plan of Care Dates Plan of Care Start Date 02/17/21 Plan of Care End Date 05/18/21 Electronically Signed by: Lexie Gu, PT 02/17/21 [id number] Please Sign and Return: I have reviewed this Plan of Care and certify that the skilled therapy services above are required to meet the patient?s needs. Physician Signature Date Printed Name and Credentials Clinical Instructor Signature Printed Name and Credentials
--- NOTE | 2021-02-24 09:26 | PT.OTN ---
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) Dorsalgia, unspecified (02/24/21) Muscle weakness (generalized) (02/24/21) Unsteadiness on feet (02/24/21) Physical Therapy Treatment Note PT-OP-A Visit Information Start: 02/14/21 17:54 Freq: Status: Active Protocol: Document 02/24/21 08:13 LRN (Rec: 02/24/21 09:25 LRN [id number]) Out-Patient Physical Therapy Visit Information Visit Information Visit Type Treatment Note Visit Start Time 08:15 Visit Stop Time 09:05 Total Visit Minutes 50 Visit Number 2 Evaluation Information Evaluation Date 02/17/21 Precautions Precautions Arthritis, back pain, neck pain, falls PT-OP-B Current Condition Start: 02/14/21 17:54 Freq: Status: Active Protocol: Document 02/17/21 13:33 LRN (Rec: 02/17/21 15:44 LRN [id number]) Current Condition History of Current Condition Onset Date 6 months ago Current Complaints Pain across the low back, Can 't sleep, poor balance. History of Current Condition Pain in middle lower back started due to repetitive lifting when trying to help finish building a house (tasks such as painting & vacuuming) and from gardening. Has had X-rays taken at [facility], but report unavailable. Pt reports her lower mid back pain radiates across the back and that it is very limiting in activity. She states her pain is less after doing back exercises that her , a retired neurologist, showed her. She takes Tylenol and an allergy medication for the pain. Has tired ice/heat, and heat seems to be more helpful. Pt requests therapy for her balance. States her balance as of 5 yrs ago is also a problem because she is older and too physically active. Last fall being a yr ago while working on her house and carrying a heavy bench and stepping backwards. Prior Treatments and Tests X-rays at [facility], unavailable. Future Testing and Treatments Planned None Developmental History Developmental History Has severe osteoporsis. Was building a house and was doing gardening for the past year, but the pain started worsening in the past 6 months. Has issue with R hand (dominant hand). Complains of a more noteable bruise on R distal forearm after wearing a wrist brace, and R thumb pain. Pt states she is planning on getting it looked at. Treatment Goals Patient/Caregiver Goals Get in better shape and strengthen the body. Walking can be painful. Sleep through the night without waking due to back pain. Prior Functional Status Baseline Function- Gait Walked 3-5 miles ~ [address] [place] e-5 days a week. Baseline Function- Recreation/Hobbies Gardening. Baseline Function- Other Slept through the night 8-9 hrs/night. Home exercise program shown by spouse (who was a physician - neurologist) - 30 minute program. Current Functional Impairments (Reported) Functional Limitations- ADL's Waking 3-4x/night due to back pain, but able to go back to sleep. Walking 3x/week in neighborhood with 1-2 hills, ~ 1 hr. Personal Factors Other Personal Factors That May Effect Reportedly severe Osteoporosis Therapy/Recovery , Cleans own house (vacuuming that makes pain worse). PT-OP-C Subjective Start: 02/14/21 17:54 Freq: Status: Active Protocol: Document 02/24/21 08:13 LRN (Rec: 02/24/21 09:25 LRN [id number]) OP-PT Subjective Patient Comments Patient Comments Went to ER due to R hand pain after working in her yard. Diagnosed with tendonitis, states the splint is helping. Doing ex's has helped her back. Pain is 0/10. Taking IBP. PT-OP-G Mobility & Gait Start: 02/14/21 17:54 Freq: Status: Active Protocol: Document 02/24/21 08:13 LRN (Rec: 02/24/21 09:25 LRN [id number]) OP Gait Assessment Comments Gait Comments Longer stance time on RLE, slight trendelenberg, or gait as if her L LE is longer. PT-OP-H Neuro Start: 02/14/21 17:54 Freq: Status: Active Protocol: Document 02/17/21 13:33 LRN (Rec: 02/17/21 15:44 LRN [id number]) Sensation Evaluation Gross Sensation Gross Sensation WNL Comments Summary Comments Pt complains of tingling in lower legs and feet. Deep Tendon Reflex & Clonus Assessment Deep Tendon Reflex Right Achilles Deep Tendon Reflex 2+ Normal Left Achilles Deep Tendon Reflex 2+ Normal Right Patellar Deep Tendon Reflex 2+ Normal Left Patellar Deep Tendon Reflex 2+ Normal PT-OP-J Posture/Palpation/Skin Start: 02/14/21 17:54 Freq: Status: Active Protocol: Document 02/17/21 13:33 LRN (Rec: 02/17/21 15:44 LRN [id number]) Posture Evaluation Position Standing T-Spine Posture Flattened L-Spine Posture Increased Lordosis,Shifted Left Shoulder Posture (R) Elevated Scapula Posture (R) Elevated Comments Posture Comments Decreased T/S and mild increase L/S curvature. Palpation Assessment Location Low Back Palpation Location In Prone: Lower T/S & L/S spine; QL, Paraspinals, SIJ. Palpation Findings Soft Tissue Tightness, Tenderness Palpation Details Assessed in Prone: Decreased T/S curvature, Tender PA of spinous processes of T11, T12 and mildly lumbar spine. Pelvis & lumbar spine is in L rotation (L SIJ is set deep). L2, L3 C-curve with apex on left. PT-OP-K Range of Motion Start: 02/14/21 17:54 Freq: Status: Active Protocol: Document 02/17/21 13:33 LRN (Rec: 02/17/21 15:44 LRN [id number]) Lumbar Spine Range of Motion Lumbar Spine Active Degrees Testing Position Standing Flexion 40 Extension 10 Rotation Left 3 Rotation Right 5 Lateral Flexion Left 10 Lateral Flexion Right 3 ROM Limitations Pain Comments Trunk flex is 40 deg's with 30 deg's hip Flexion Trunk Ext is 10 deg's 3 deg's hip Extension Hip Goniometric Range of Motion Hip Right Passive Hip ROM WFL No Testing Position Supine Flexion w/Knee Flexed 115 Straight Leg Raise 40 Internal Rotation 30 External Rotation 20 Left Passive Hip ROM WFL Yes Testing Position Supine Flexion w/Knee Flexed 120 Straight Leg Raise 60 Internal Rotation 25 External Rotation 60 PT-OP-L Special Tests Start: 02/14/21 17:54 Freq: Status: Active Protocol: Document 02/24/21 08:13 LRN (Rec: 02/24/21 09:25 LRN [id number]) Special Tests Lumbar Spine Special Tests Straight Leg Raise Test Results Negative L side Comments ~80 deg's bilaterally. Pt had IBP this AM PT-OP-M Strength Start: 02/14/21 17:54 Freq: Status: Active Protocol: Document 02/24/21 08:13 LRN (Rec: 02/24/21 09:25 LRN [id number]) Hip Strength Hip Manual Muscle Testing Right Flexion (L2) 3 Fair Extension (S1) 5 Normal Abduction 3+ Fair+ External Rotation 5 Normal Internal Rotation 5 Normal Left Flexion (L2) 5 Normal Extension (S1) 5 Normal Abduction 5 Normal Adduction 5 Normal External Rotation 4+ Good+ PT-OP-Q Treatments Start: 02/14/21 17:54 Freq: Status: Active Protocol: Document 02/24/21 08:13 LRN (Rec: 02/24/21 09:25 LRN [id number]) Therapeutic Exercises Supine Exercises TA tightening Supine Exercise Name TA tightenint Reps/Minutes 10' Comments Extra time needed to try to teach TA awareness, not totally successful Bridging Reps/Minutes 30x Lateral Hip stretch Side left Comments Extra time needed to determine position for max stretch Piriformis stretch Side left Comments Extra time needed to determine position for max stretch Sidelying Exercises TA tightening Sidelying Exercise Name TA tightening Side bilateral Reps/Minutes 115' Comments Extra time kyrie to determine awareness and max contraction w/breathing Other Exercises Transfer training Other Exercise Name Log roll technique Side bilateral Reps/Minutes 4x Comments Much verbal and some phys cuing needed before pt able to perform correctly Self-Care/Home Management Treatment Education Patient Education Home Exercise Program Other Education Discussed with spouse present, pt's plan of care for change from 2x/week to 1x/week due to her wrist injury and her not being available next week. Body mechanics education for log roll transfer in/out of bed. Activities Self-Care/Home Management Activities Issued & reviewed HEP: Lateral hip and Piriformis stretch, and TA tightening to be done in supine & sidelie. PT-OP-T Assessment and Plan Start: 02/14/21 17:54 Freq: Status: Active Protocol: Document 02/24/21 08:13 LRN (Rec: 02/24/21 09:25 LRN [id number]) Physical Therapy Assessment Goals Four Impairment Decreased balance making the pt at risk of falling Impairment MANDO = 24; 20-39% impaired function. Single Leg Stance (SLS) w/EO/ hands across chest, wearing tennis shoes is 2 right, 7 left. Short Term Goal (STG) Improve pt's SLS Ability by 10 secs with hands across her chest, wearing tennis shoes. STG Duration 03/17/21 Longterm Goal (LTG) Pt will be able to imiprove SLS to 14 secs (norm for 70-79 yo's with EO 14 secs). LTG Duration 05/18/21 Three Impairment Decreased ability to actively exercise for her health, due to back pain. Short Term Goal (STG) Iimprove pt awareness of proper movement with her HEP to prevent increased back pain and dysfunction with exercise . 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 3[place]5 days a week. LTG Duration 05/18/21 Two Impairment Back pain interrupts sleep at night (wakes 3-5x/night). Short Term Goal (STG) Pt educated in sleeping positons to decrease number of times she wakes at night. (02/24/21: Educated pt in use of pillow between knees in sidelie. Pt having no pain at nighttime, possibly due to IBP use) STG Duration 02/23/21 (02/24/21: MET GOALL) Assistant [employer] Goal (LTG) Improve abdominal strength with pt able to maintain core stability with movement and resistance to LE's in supine in order for the pt to be able to sleep through the night without waking due to back pain. LTG Duration 05/18/21 One Impairment Lacks appropriate self care HEP. Short Term Goal (STG) Pt will be educated in proper body mechanics for ADLs and transfers. 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 (02/24/21: HEP: L Piriformis & Lateral hip stretch; TA tightening sup&sidelie)/. LTG Duration 05/18/21 (02/24/21: Progressed) Progress Towards Goals Progress Comments Partially met STG #1: Pt educated in proper transfer body mechanics. STG#2: MET (only sidesleeping positioning addressed due to pt having no pain with supine sleeping with use of IBP). Assessment Summary Assessment Pt presents with negative L PSLR, but she demonstrates decreased L hip mobility and strength. She is slow to understanding of ex's, requiring extra time for training, teaching, and awareness training. Pt gait appears to be slight R Trendelenburg and less of L lateral shift of pelvis. X- rays from [facility] show grade 1 retrolisthesis of L1-2, L2-3, L3-4 and L4-5. MIld levoconvex curvature centered L1-2; and multilevel disc degeneration with disc loss worst at L2-L3. Physical Therapy Plan Frequency and Duration Frequency of Treatment 2x/Week Plan of Care Start Date 02/17/21 Plan of Care End Date 05/18/21 Next Visit Focus/Plan Next Note Type Treatment Note Next Visit Plan Issue Hip ER/IR strengthening (sit/supine). Try gentle manual lumbar traction/axial compression if LBP returns ( note: pt with Ostepenia); Supine sleeping posture education/modification if LBP returns; Modify HEP for possible Sciatic pain; Pt education/training in proper body mechanics for ADLs ; Robby extension program due to grade 1 retrolisthesis of L/S; Progress Core stabilization program; Modify HEP if L hip mobility improved to include R hip for IR stretch; Add SLS, and if needed R > L hip ER stretch); Modalities as needed for pain, MH/IFES after exercise if needed.
--- NOTE | 2021-03-10 09:45 | PT.OTN ---
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 Supervised by KITTY Cid throughout tx. Visit Start Time 09:00 Visit Stop Time 09:45 Total Visit Minutes 45 Visit Number 3 Number of MEDICINE AIDE Visits 1 Evaluation Information Evaluation Date 02/17/21 Precautions Precautions Arthritis, back pain, neck pain, falls PT-OP-B Current Condition Start: 02/14/21 17:54 Freq: Status: Active Protocol: Document 02/17/21 13:33 LRN (Rec: 02/17/21 15:44 LRN [id number]) Current Condition History of Current Condition Onset Date 6 months ago Current Complaints Pain across the low back, Can 't sleep, poor balance. History of Current Condition Pain in middle lower back started due to repetitive lifting when trying to help finish building a house (tasks such as painting & vacuuming) and from gardening. Has had X-rays taken at [facility], but report unavailable. Pt reports her lower mid back pain radiates across the back and that it is very limiting in activity. She states her pain is less after doing back exercises that her , a retired neurologist, showed her. She takes Tylenol and an allergy medication for the pain. Has tired ice/heat, and heat seems to be more helpful. Pt requests therapy for her balance. States her balance as of 5 yrs ago is also a problem because she is older and too physically active. Last fall being a yr ago while working on her house and carrying a heavy bench and stepping backwards. Prior Treatments and Tests X-rays at [facility], unavailable. Future Testing and Treatments Planned None Developmental History Developmental History Has severe osteoporsis. Was building a house and was doing gardening for the past year, but the pain started worsening in the past 6 months. Has issue with R hand (dominant hand). Complains of a more noteable bruise on R distal forearm after wearing a wrist brace, and R thumb pain. Pt states she is planning on getting it looked at. Treatment Goals Patient/Caregiver Goals Get in better shape and strengthen the body. Walking can be painful. Sleep through the night without waking due to back pain. Prior Functional Status Baseline Function- Gait Walked 3-5 miles ~ 1 hr. [employer]. e-5 days a week. Baseline Function- Recreation/Hobbies Gardening. Baseline Function- Other Slept through the night 8-9 hrs/night. Home exercise program shown by spouse (who was a physician - neurologist) - 30 minute program. Current Functional Impairments (Reported) Functional Limitations- ADL's Waking 3-4x/night due to back pain, but able to go back to sleep. Walking 3x/week in neighborhood with 1-2 hills, ~ 1 hr. Personal Factors Other Personal Factors That May Effect Reportedly severe Osteoporosis Therapy/Recovery , Cleans own house (vacuuming that makes pain worse). PT-OP-C Subjective Start: 02/14/21 17:54 Freq: Status: Active Protocol: Document 03/10/21 09:00 SP (Rec: 03/10/21 09:49 SP [id number]) OP-PT Subjective Patient Comments Patient Comments Pt arrived without spouse this tx. Pt states feeling great extra time spent with education with spouse atttended, feels therapy is working and having no pain at night now. Is compliant with HEP at home. PT-OP-G Mobility & Gait Start: 02/14/21 17:54 Freq: Status: Active Protocol: Document 02/24/21 08:13 LRN (Rec: 02/24/21 09:25 LRN [id number]) OP Gait Assessment Comments Gait Comments Longer stance time on RLE, slight trendelenberg, or gait as if her L LE is longer. PT-OP-H Neuro Start: 02/14/21 17:54 Freq: Status: Active Protocol: Document 02/17/21 13:33 LRN (Rec: 02/17/21 15:44 LRN [id number]) Sensation Evaluation Gross Sensation Gross Sensation WNL Comments Summary Comments Pt complains of tingling in lower legs and feet. Deep Tendon Reflex & Clonus Assessment Deep Tendon Reflex Right Achilles Deep Tendon Reflex 2+ Normal Left Achilles Deep Tendon Reflex 2+ Normal Right Patellar Deep Tendon Reflex 2+ Normal Left Patellar Deep Tendon Reflex 2+ Normal PT-OP-J Posture/Palpation/Skin Start: 02/14/21 17:54 Freq: Status: Active Protocol: Document 02/17/21 13:33 LRN (Rec: 02/17/21 15:44 LRN [id number]) Posture Evaluation Position Standing T-Spine Posture Flattened L-Spine Posture Increased Lordosis,Shifted Left Shoulder Posture (R) Elevated Scapula Posture (R) Elevated Comments Posture Comments Decreased T/S and mild increase L/S curvature. Palpation Assessment Location Low Back Palpation Location In Prone: Lower T/S & L/S spine; QL, Paraspinals, SIJ. Palpation Findings Soft Tissue Tightness, Tenderness Palpation Details Assessed in Prone: Decreased T/S curvature, Tender PA of spinous processes of T11, T12 and mildly lumbar spine. Pelvis & lumbar spine is in L rotation (L SIJ is set deep). L2, L3 C-curve with apex on left. PT-OP-K Range of Motion Start: 02/14/21 17:54 Freq: Status: Active Protocol: Document 02/17/21 13:33 LRN (Rec: 02/17/21 15:44 LRN [id number]) Lumbar Spine Range of Motion Lumbar Spine Active Degrees Testing Position Standing Flexion 40 Extension 10 Rotation Left 3 Rotation Right 5 Lateral Flexion Left 10 Lateral Flexion Right 3 ROM Limitations Pain Comments Trunk flex is 40 deg's with 30 deg's hip Flexion Trunk Ext is 10 deg's 3 deg's hip Extension Hip Goniometric Range of Motion Hip Right Passive Hip ROM WFL No Testing Position Supine Flexion w/Knee Flexed 115 Straight Leg Raise 40 Internal Rotation 30 External Rotation 20 Left Passive Hip ROM WFL Yes Testing Position Supine Flexion w/Knee Flexed 120 Straight Leg Raise 60 Internal Rotation 25 External Rotation 60 PT-OP-L Special Tests Start: 02/14/21 17:54 Freq: Status: Active Protocol: Document 02/24/21 08:13 LRN (Rec: 02/24/21 09:25 LRN [id number]) Special Tests Lumbar Spine Special Tests Straight Leg Raise Test Results Negative L side Comments ~80 deg's bilaterally. Pt had IBP this AM PT-OP-M Strength Start: 02/14/21 17:54 Freq: Status: Active Protocol: Document 02/24/21 08:13 LRN (Rec: 02/24/21 09:25 LRN [id number]) Hip Strength Hip Manual Muscle Testing Right Flexion (L2) 3 Fair Extension (S1) 5 Normal Abduction 3+ Fair+ External Rotation 5 Normal Internal Rotation 5 Normal Left Flexion (L2) 5 Normal Extension (S1) 5 Normal Abduction 5 Normal Adduction 5 Normal External Rotation 4+ Good+ PT-OP-Q Treatments Start: 02/14/21 17:54 Freq: Status: Active Protocol: Document 03/10/21 09:00 SP (Rec: 03/10/21 09:49 SP [id number]) Therapeutic Exercises Supine Exercises TA tightening Supine Exercise Name TA tightenint Reps/Minutes 10 sec x10 review Comments improved performance Bridging Reps/Minutes 1 sec hold x30 Comments cued for PPT awareness Lateral Hip stretch Supine Exercise Name hooklying Side left Equipment Used opp LE straight Reps/Minutes 30 x3 Comments cued positioning, L knee bent add hip adduction cross midline- good stretch Piriformis stretch Side left Reps/Minutes 30 x3 Comments Extra time needed to determine position for max stretch Sidelying Exercises TA tightening Sidelying Exercise Name TA tightening Side bilateral Reps/Minutes 115' Comments Extra time kyrie to determine awareness and max contraction w/breathing Standing Exercises hip hike Standing Exercise Name tried in PT only- recheck Side bilateral Equipment Used floor Reps/Minutes x5 reps Comments extra time for proper form, pain free Other Exercises Transfer training Other Exercise Name Log roll technique Side bilateral Reps/Minutes x8 Comments Extra verbal and some phys cuing needed before pt able to perform correctly Self-Care/Home Management Treatment Education Patient Education Home Exercise Program Other Education Extra time spent Body mechanics education for log roll transfer in/out of bed repetitions for proper form and back health painfree and carryover recall, provided hand out . Then sleeping positions for back alignment support supine and sidelying. Took pictures with her phone for recall and PT-OP-T Assessment and Plan Start: 02/14/21 17:54 Freq: Status: Active Protocol: Document 03/10/21 09:00 SP (Rec: 03/10/21 09:49 SP [id number]) Physical Therapy Assessment Goals Four Impairment Decreased balance making the pt at risk of falling Impairment MANDO = 24; 20-39% impaired function. Single Leg Stance (SLS) w/EO/ hands across chest, wearing tennis shoes is 2 right, 7 left. Short Term Goal (STG) Improve pt's SLS Ability by 10 secs with hands across her chest, wearing tennis shoes. STG Duration 03/17/21 Longterm Goal (LTG) Pt will be able to imiprove SLS to 14 secs (norm for 70-79 yo's with EO 14 secs). LTG Duration 05/18/21 Three Impairment Decreased ability to actively exercise for her health, due to back pain. Short Term Goal (STG) Iimprove pt awareness of proper movement with her HEP to prevent increased back pain and dysfunction with exercise . STG Duration Unhairer Goal (LTG) Walked 3-5 miles ~ [address] [place] 3-5 days a week. LTG Duration 05/18/21 Two Impairment Back pain interrupts sleep at night (wakes 3-5x/night). Short Term Goal (STG) Pt educated in sleeping positons to decrease number of times she wakes at night. (02/24/21: Educated pt in use of pillow between knees in sidelie. Pt having no pain at nighttime, possibly due to IBP use) STG Duration 02/23/21 (02/24/21: MET GOALL) Longterm Goal (LTG) Improve abdominal strength with pt able to maintain core stability with movement and resistance to LE's in supine in order for the pt to be able to sleep through the night without waking due to back pain. LTG Duration 05/18/21 One Impairment Lacks appropriate self care HEP. Short Term Goal (STG) Pt will be educated in proper body mechanics for ADLs and transfers. (02/24/21: Pt educated in proper transfer body mechanics .) STG Duration 03/03/21 (02/24/21: Partially met goal) Unhairer Goal (LTG) Pt will be independent with a self care HEP. (02/24/21: HEP: L Piriformis & Lateral hip stretch; TA tightening sup&sidelie)/. LTG Duration 05/18/21 (02/24/21: Progressed) Assessment Summary Assessment Pt requires multiple repetitions for proper form during HEP, provided HO for recall carryover at home. Extra time spent on log roll and sleep positioning alignment for back health with personal phone pic for help carryover at home recall, reported this is much more comfortable. Initiated hip hike for QL strengthening and TA facilitation awareness. Physical Therapy Plan Frequency and Duration Frequency of Treatment 2x/Week Plan of Care Start Date 02/17/21 Plan of Care End Date 05/18/21 Therapeutic Interventions Therapeutic Interventions Aquatic Therapy,Balance Training,Gait Training,Home Exercise Program,Manual Therapy,Neuromuscular Re- education,Patient/Caregiver Education,Self-Care/Home Management,Soft Tissue Mobilization,Therapeutic Activities,Therapeutic Exercises Modalities Cold Pack/Ice Massage,Electric Stimulation,Hot Packs, Ultrasound Next Visit Focus/Plan Next Note Type Treatment Note Next Visit Plan COntinue log roll, HEP. POC: Issue Hip ER/IR strengthening (sit/supine). Try gentle manual lumbar traction/axial compression if LBP returns (note: pt with Ostepenia); Pt education/training in proper body mechanics for ADLs ; Robby extension program due to grade 1 retrolisthesis of L/S; Progress Core stabilization program; Modify HEP if L hip mobility improved to include R hip for IR stretch; Add SLS, and if needed R > L hip ER stretch); Modalities as needed for pain, MH/IFES after exercise if needed.
--- NOTE | 2021-03-17 11:20 | PT.OTN ---
Current Diagnoses Flatback syndrome, site unspecified (03/17/21) Dorsalgia, unspecified (03/17/21) Muscle weakness (generalized) (03/17/21) Unsteadiness on feet (03/17/21) Physical Therapy Treatment Note PT-OP-A Visit Information Start: 02/14/21 17:54 Freq: Status: Active Protocol: Document 03/17/21 10:34 SP (Rec: 03/17/21 11:34 SP [id number]) Out-Patient Physical Therapy Visit Information Visit Information Visit Type Treatment Note Visit Note JYOTSNA Calle attended and provided instruction under the direct supervision and instruction of METAL MODEL BUILDER Palak Visit Start Time 10:34 Visit Stop Time 11:20 Total Visit Minutes 46 Visit Number 4 Number of METAL MODEL BUILDER Visits 2 PT-OP-B Current Condition Start: 02/14/21 17:54 Freq: Status: Active Protocol: Document 02/17/21 13:33 LRN (Rec: 02/17/21 15:44 LRN [id number]) Current Condition History of Current Condition Onset Date 6 months ago Current Complaints Pain across the low back, Can 't sleep, poor balance. History of Current Condition Pain in middle lower back started due to repetitive lifting when trying to help finish building a house (tasks such as painting & vacuuming) and from gardening. Has had X-rays taken at [facility], but report unavailable. Pt reports her lower mid back pain radiates across the back and that it is very limiting in activity. She states her pain is less after doing back exercises that her , a retired neurologist, showed her. She takes Tylenol and an allergy medication for the pain. Has tired ice/heat, and heat seems to be more helpful. Pt requests therapy for her balance. States her balance as of 5 yrs ago is also a problem because she is older and too physically active. Last fall being a yr ago while working on her house and carrying a heavy bench and stepping backwards. Prior Treatments and Tests X-rays at [facility], unavailable. Future Testing and Treatments Planned None Developmental History Developmental History Has severe osteoporsis. Was building a house and was doing gardening for the past year, but the pain started worsening in the past 6 months. Has issue with R hand (dominant hand). Complains of a more noteable bruise on R distal forearm after wearing a wrist brace, and R thumb pain. Pt states she is planning on getting it looked at. Treatment Goals Patient/Caregiver Goals Get in better shape and strengthen the body. Walking can be painful. Sleep through the night without waking due to back pain. Prior Functional Status Baseline Function- Gait Walked 3-5 miles ~ [address] hr. [employer]. e-5 days a week. Baseline Function- Recreation/Hobbies Gardening. Baseline Function- Other Slept through the night 8-9 hrs/night. Home exercise program shown by spouse (who was a physician - neurologist) - 30 minute program. Current Functional Impairments (Reported) Functional Limitations- ADL's Waking 3-4x/night due to back pain, but able to go back to sleep. Walking 3x/week in neighborhood with 1-2 hills, ~ 1 hr. Personal Factors Other Personal Factors That May Effect Reportedly severe Osteoporosis Therapy/Recovery , Cleans own house (vacuuming that makes pain worse). PT-OP-C Subjective Start: 02/14/21 17:54 Freq: Status: Active Protocol: Document 03/17/21 10:34 SP (Rec: 03/17/21 11:34 SP [id number]) OP-PT Subjective Patient Comments Patient Comments Pt reported fell off chair when reaching to change a light bulb onto her L shld. (a physician) assessed her and felt didn't need to see her personal physician, reports limited L UE shld AROM 7-12/14. She states encouraging her continue tomove her L shld. She states her back pain has resolved and compliant with her HEP. PT-OP-G Mobility & Gait Start: 02/14/21 17:54 Freq: Status: Active Protocol: Document 02/24/21 08:13 LRN (Rec: 02/24/21 09:25 LRN [id number]) OP Gait Assessment Comments Gait Comments Longer stance time on RLE, slight trendelenberg, or gait as if her L LE is longer. PT-OP-H Neuro Start: 02/14/21 17:54 Freq: Status: Active Protocol: Document 02/17/21 13:33 LRN (Rec: 02/17/21 15:44 LRN [id number]) Sensation Evaluation Gross Sensation Gross Sensation WNL Comments Summary Comments Pt complains of tingling in lower legs and feet. Deep Tendon Reflex & Clonus Assessment Deep Tendon Reflex Right Achilles Deep Tendon Reflex 2+ Normal Left Achilles Deep Tendon Reflex 2+ Normal Right Patellar Deep Tendon Reflex 2+ Normal Left Patellar Deep Tendon Reflex 2+ Normal PT-OP-J Posture/Palpation/Skin Start: 02/14/21 17:54 Freq: Status: Active Protocol: Document 02/17/21 13:33 LRN (Rec: 02/17/21 15:44 LRN [id number]) Posture Evaluation Position Standing T-Spine Posture Flattened L-Spine Posture Increased Lordosis,Shifted Left Shoulder Posture (R) Elevated Scapula Posture (R) Elevated Comments Posture Comments Decreased T/S and mild increase L/S curvature. Palpation Assessment Location Low Back Palpation Location In Prone: Lower T/S & L/S spine; QL, Paraspinals, SIJ. Palpation Findings Soft Tissue Tightness, Tenderness Palpation Details Assessed in Prone: Decreased T/S curvature, Tender PA of spinous processes of T11, T12 and mildly lumbar spine. Pelvis & lumbar spine is in L rotation (L SIJ is set deep). L2, L3 C-curve with apex on left. PT-OP-K Range of Motion Start: 02/14/21 17:54 Freq: Status: Active Protocol: Document 03/17/21 10:34 SP (Rec: 03/17/21 11:34 SP [id number]) Shoulder Goniometric Range of Motion Shoulder Left Shoulder ROM WFL No Testing Position Standing Flexion 90 Extension 68 Abduction 96 External Rotation at 0 degrees Abduction 20 PT-OP-L Special Tests Start: 02/14/21 17:54 Freq: Status: Active Protocol: Document 02/24/21 08:13 LRN (Rec: 02/24/21 09:25 LRN [id number]) Special Tests Lumbar Spine Special Tests Straight Leg Raise Test Results Negative L side Comments ~80 deg's bilaterally. Pt had IBP this AM PT-OP-M Strength Start: 02/14/21 17:54 Freq: Status: Active Protocol: Document 02/24/21 08:13 LRN (Rec: 02/24/21 09:25 LRN [id number]) Hip Strength Hip Manual Muscle Testing Right Flexion (L2) 3 Fair Extension (S1) 5 Normal Abduction 3+ Fair+ External Rotation 5 Normal Internal Rotation 5 Normal Left Flexion (L2) 5 Normal Extension (S1) 5 Normal Abduction 5 Normal Adduction 5 Normal External Rotation 4+ Good+ PT-OP-Q Treatments Start: 02/14/21 17:54 Freq: Status: Active Protocol: Document 03/17/21 10:34 SP (Rec: 03/17/21 11:34 SP [id number]) Therapeutic Exercises Supine Exercises SKTC TA bicycle Supine Exercise Name performed self ex: Side bilateral Resistance AROM Reps/Minutes x10 alternating LEs Comments cued slow performance, TA awareness Bridging Reps/Minutes 3-5 sec hold x30 Comments Good TA, cue x1 for slow pacing- painfree response Lateral Hip stretch Supine Exercise Name hooklying Side left Equipment Used opp LE straight Reps/Minutes 30 x3 Comments cued hold for lateral hip stretch Sitting Exercises Clamshells Sitting Exercise Name in PT pre band walk Side bilateral Resistance L1 TB around knees Reps/Minutes 10x Comments Cues for slow eccentric movement. STS Sitting Exercise Name added to HEP Side bilateral Resistance AROM Equipment Used 18 elevated table Reps/Minutes 10x Comments Performed with arms crossed across chest. Cues for hip hinging. Standing Exercises Sidestepping w/ TB Standing Exercise Name band walk- added to HEP Side bilateral Resistance L1 TB around knees Equipment Used cued hover hands over counter Reps/Minutes 10 ft x4 laps Comments Cues for slow steps, foot clearance. Therapeutic Activity Therapeutic Activity vacuuming/ mopping Reps/Minutes 5 min Comments soft knee, straight back, wt shift between BLE side to side , forward/ backward- lunge movement, hip hinge straight back. body mechanics lifting Reps/Minutes 5 min Comments hip hinge, squat close to object, lift with legs, bring close to body and step pivot feet to place object, tried 1/ 2 kneel but challenged with 1 Ue support from floor ascend. Self-Care/Home Management Treatment Education Patient Education Home Exercise Program Other Education Initiated band walk and STS for home functional strengthening. Extra time spent for proper body mechanics with lifting and ADL vacuuming/ mopping, improved performance and pain free. She states may have someone come in and do the vacuuming/ mopping. PT-OP-T Assessment and Plan Start: 02/14/21 17:54 Freq: Status: Active Protocol: Document 03/17/21 10:34 SP (Rec: 03/17/21 11:34 SP [id number]) Physical Therapy Assessment Goals Four Impairment Decreased balance making the pt at risk of falling Impairment MANDO = 24; 20-39% impaired function. Single Leg Stance (SLS) w/EO/ hands across chest, wearing tennis shoes is 2 right, 7 left. Short Term Goal (STG) Improve pt's SLS Ability by 10 secs with hands across her chest, wearing tennis shoes. STG Duration 03/17/21 [employer] Goal (LTG) Pt will be able to imiprove SLS to 14 secs (norm for 70-79 yo's with EO 14 secs). LTG Duration 05/18/21 Three Impairment Decreased ability to actively exercise for her health, due to back pain. Short Term Goal (STG) Iimprove pt awareness of proper movement with her HEP to prevent increased back pain and dysfunction with exercise . STG Duration [facility] Goal (LTG) Walked 3-5 miles ~ [address] [place] 3-5 days a week. LTG Duration 05/18/21 Two Impairment Back pain interrupts sleep at night (wakes 3-5x/night). Short Term Goal (STG) Pt educated in sleeping positons to decrease number of times she wakes at night. (02/24/21: Educated pt in use of pillow between knees in sidelie. Pt having no pain at nighttime, possibly due to IBP use) STG Duration 02/23/21 (02/24/21: MET GOALL) [employer] Goal (LTG) Improve abdominal strength with pt able to maintain core stability with movement and resistance to LE's in supine in order for the pt to be able to sleep through the night without waking due to back pain. LTG Duration 05/18/21 One Impairment Lacks appropriate self care HEP. Short Term Goal (STG) Pt will be educated in proper body mechanics for ADLs and transfers. (02/24/21: Pt educated in proper transfer body mechanics .) STG Duration 03/03/21 (02/24/21: Partially met goal) Senior Living Goal (LTG) Pt will be independent with a self care HEP. (02/24/21: HEP: L Piriformis & Lateral hip stretch; TA tightening sup&sidelie)/. LTG Duration 05/18/21 (02/24/21: Progressed) Assessment Summary Assessment HEP review supine, painfree LB now. Progressed with functional strengthening, initiated band walk, sit to stands with good feedback muscle work painfree, cued slow eccentric Le return and near counter for safety balance. Pt improved understanding back health with mechanics education. Physical Therapy Plan Frequency and Duration Frequency of Treatment 2x/Week Plan of Care Start Date 02/17/21 Plan of Care End Date 05/18/21 Therapeutic Interventions Therapeutic Interventions Aquatic Therapy,Balance Training,Gait Training,Home Exercise Program,Manual Therapy,Neuromuscular Re- education,Patient/Caregiver Education,Self-Care/Home Management,Soft Tissue Mobilization,Therapeutic Activities,Therapeutic Exercises Modalities Cold Pack/Ice Massage,Electric Stimulation,Hot Packs, Ultrasound Next Visit Focus/Plan Next Note Type Treatment Note Next Visit Plan *Pt wants PT to assess L shld next appt and see if needs to to exercises to improve ROM from fall recently. *Recheck seated clamshell to possibly add HEP, review band walk, assess proper mechanics learned last tx at home. POC: Leila extension program due to grade 1 retrolisthesis of L/S; Progress Core stabilization program; Modify HEP if L hip mobility improved to include R hip for IR stretch; Add SLS, and if needed R > L hip ER stretch)
--- NOTE | 2021-03-22 10:11 | PT.OTN ---
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 Recent fall: ~ 03/15/21 from chair, landing on L shoulder. PT-OP-B Current Condition Start: 02/14/21 17:54 Freq: Status: Active Protocol: Document 02/17/21 13:33 LRN (Rec: 02/17/21 15:44 LRN [id number]) Current Condition History of Current Condition Onset Date 6 months ago Current Complaints Pain across the low back, Can 't sleep, poor balance. History of Current Condition Pain in middle lower back started due to repetitive lifting when trying to help finish building a house (tasks such as painting & vacuuming) and from gardening. Has had X-rays taken at [facility], but report unavailable. Pt reports her lower mid back pain radiates across the back and that it is very limiting in activity. She states her pain is less after doing back exercises that her , a retired neurologist, showed her. She takes Tylenol and an allergy medication for the pain. Has tired ice/heat, and heat seems to be more helpful. Pt requests therapy for her balance. States her balance as of 5 yrs ago is also a problem because she is older and too physically active. Last fall being a yr ago while working on her house and carrying a heavy bench and stepping backwards. Prior Treatments and Tests X-rays at [facility], unavailable. Future Testing and Treatments Planned None Developmental History Developmental History Has severe osteoporsis. Was building a house and was doing gardening for the past year, but the pain started worsening in the past 6 months. Has issue with R hand (dominant hand). Complains of a more noteable bruise on R distal forearm after wearing a wrist brace, and R thumb pain. Pt states she is planning on getting it looked at. Treatment Goals Patient/Caregiver Goals Get in better shape and strengthen the body. Walking can be painful. Sleep through the night without waking due to back pain. Prior Functional Status Baseline Function- Gait Walked 3-5 miles ~ [address] [place] e-5 days a week. Baseline Function- Recreation/Hobbies Gardening. Baseline Function- Other Slept through the night 8-9 hrs/night. Home exercise program shown by spouse (who was a physician - neurologist) - 30 minute program. Current Functional Impairments (Reported) Functional Limitations- ADL's Waking 3-4x/night due to back pain, but able to go back to sleep. Walking 3x/week in neighborhood with 1-2 hills, ~ 1 hr. Personal Factors Other Personal Factors That May Effect Reportedly severe Osteoporosis Therapy/Recovery , Cleans own house (vacuuming that makes pain worse). PT-OP-C Subjective Start: 02/14/21 17:54 Freq: Status: Active Protocol: Document 03/22/21 09:02 LRN (Rec: 03/22/21 10:07 LRN [id number]) OP-PT Subjective Patient Comments Patient Comments Pt states she fell onto her L shoulder (R handed) while on a chair. She was not able to lift her arm initially but now shows she can lift her arm overhead. Had an abrasion on the L lower leg. States she has been working on her core. States her back doesn't hurt anymore. PT-OP-E Functional Tests Start: 02/14/21 17:54 Freq: Status: Active Protocol: Document 03/22/21 09:02 LRN (Rec: 03/22/21 10:07 LRN [id number]) Functional Tests Apley's Scratch Test Action 1- Left Posterior Acromion Action 1- Right 2 below Posterior Acromion Action 2- Left T2 Action 2- Right T1 Action 3- Left L3 Action 3- Right T10 PT-OP-G Mobility & Gait Start: 02/14/21 17:54 Freq: Status: Active Protocol: Document 02/24/21 08:13 LRN (Rec: 02/24/21 09:25 LRN [id number]) OP Gait Assessment Comments Gait Comments Longer stance time on RLE, slight trendelenberg, or gait as if her L LE is longer. PT-OP-H Neuro Start: 02/14/21 17:54 Freq: Status: Active Protocol: Document 02/17/21 13:33 LRN (Rec: 02/17/21 15:44 LRN [id number]) Sensation Evaluation Gross Sensation Gross Sensation WNL Comments Summary Comments Pt complains of tingling in lower legs and feet. Deep Tendon Reflex & Clonus Assessment Deep Tendon Reflex Right Achilles Deep Tendon Reflex 2+ Normal Left Achilles Deep Tendon Reflex 2+ Normal Right Patellar Deep Tendon Reflex 2+ Normal Left Patellar Deep Tendon Reflex 2+ Normal PT-OP-J Posture/Palpation/Skin Start: 02/14/21 17:54 Freq: Status: Active Protocol: Document 02/17/21 13:33 LRN (Rec: 02/17/21 15:44 LRN [id number]) Posture Evaluation Position Standing T-Spine Posture Flattened L-Spine Posture Increased Lordosis,Shifted Left Shoulder Posture (R) Elevated Scapula Posture (R) Elevated Comments Posture Comments Decreased T/S and mild increase L/S curvature. Palpation Assessment Location Low Back Palpation Location In Prone: Lower T/S & L/S spine; QL, Paraspinals, SIJ. Palpation Findings Soft Tissue Tightness, Tenderness Palpation Details Assessed in Prone: Decreased T/S curvature, Tender PA of spinous processes of T11, T12 and mildly lumbar spine. Pelvis & lumbar spine is in L rotation (L SIJ is set deep). L2, L3 C-curve with apex on left. PT-OP-K Range of Motion Start: 02/14/21 17:54 Freq: Status: Active Protocol: Document 03/22/21 09:02 LRN (Rec: 03/22/21 10:07 LRN [id number]) Shoulder Goniometric Range of Motion Shoulder Right Active Shoulder ROM WFL No Testing Position Supine Flexion 170 Abduction 180 External Rotation at 90 degrees 90 Abduction Internal Rotation 90 Internal Rotation Behind Back (text) T10 Left Active Shoulder ROM WFL No Testing Position Supine Flexion 150 Abduction 130 External Rotation at 90 degrees 58 Abduction Internal Rotation 43 Internal Rotation Behind Back (text) L3 PT-OP-L Special Tests Start: 02/14/21 17:54 Freq: Status: Active Protocol: Document 02/24/21 08:13 LRN (Rec: 02/24/21 09:25 LRN [id number]) Special Tests Lumbar Spine Special Tests Straight Leg Raise Test Results Negative L side Comments ~80 deg's bilaterally. Pt had IBP this AM PT-OP-M Strength Start: 02/14/21 17:54 Freq: Status: Active Protocol: Document 02/24/21 08:13 LRN (Rec: 02/24/21 09:25 LRN [id number]) Hip Strength Hip Manual Muscle Testing Right Flexion (L2) 3 Fair Extension (S1) 5 Normal Abduction 3+ Fair+ External Rotation 5 Normal Internal Rotation 5 Normal Left Flexion (L2) 5 Normal Extension (S1) 5 Normal Abduction 5 Normal Adduction 5 Normal External Rotation 4+ Good+ PT-OP-Q Treatments Start: 02/14/21 17:54 Freq: Status: Active Protocol: Document 03/22/21 09:02 LRN (Rec: 03/22/21 10:07 LRN [id number]) Therapeutic Exercises Supine Exercises Deep Cervical Neck Flexors Supine Exercise Name Neck Elongation training Reps/Minutes 3' Comments Extra time needed for proper awareness training Shldr AROM Supine Exercise Name AROM Flex, AB, ER, IR stretch Side bilateral Reps/Minutes 15' Comments AROM taken with stretching TA BKFO Supine Exercise Name TA with active BKFO Reps/Minutes 10x Comments Extra time for core stab awareness training C. SB stretch Side bilateral Reps/Minutes 10 hold x 10 Comments Held L SB due to L neck pain. C. Rot stretch Side bilateral Reps/Minutes 10 hold x 6 SKTC TA bicycle Supine Exercise Name TA w/SKTC Side bilateral Resistance AROM Reps/Minutes x10 single LEs Comments cued slow performance, TA awareness Bridging Supine Exercise Name Bridging Reps/Minutes 1 hold x30 Comments Good TA, cued for continual lifts for endurance - painfree response Lateral Hip stretch Supine Exercise Name hooklying Side left Equipment Used opp LE straight Reps/Minutes 60 x1 Comments cued hold for lateral hip stretch Piriformis stretch Supine Exercise Name Piriformis stretch Side left Reps/Minutes 60 x1 Comments Extra time needed to obtain proper position for max stretch Therapeutic Activity Therapeutic Activity Sup>Sit training Name Sup>Sit to R side Reps/Minutes 4' Comments Pt needed v cuing to adjust body position for table width. Min>Mod A needed due to weakness of shoulder AB on R side and pt no using R wrist ( in splint for carpel tunnel pain). Manual Therapy Treatment Manual Traction Cervical Details Gentle manual C. tx with L shoulder ER/IR and for reduced pain. Body Position Supine Reps/Duration 6' Comments Traction applied at diffent times for short periods of time. Manual traction applied at end of therapy to help reduce pain from treatment and shoulder AROM. PT-OP-T Assessment and Plan Start: 02/14/21 17:54 Freq: Status: Active Protocol: Document 03/22/21 09:02 LRN (Rec: 03/22/21 10:07 LRN [id number]) Physical Therapy Assessment Goals Four Impairment Decreased balance making the pt at risk of falling Impairment MANDO = 24; 20-39% impaired function. Single Leg Stance (SLS) w/EO/ hands across chest, wearing tennis shoes is 2 right, 7 left. Short Term Goal (STG) Improve pt's SLS Ability by 10 secs with hands across her chest, wearing tennis shoes. STG Duration 03/17/21 Custodial Goal (LTG) Pt will be able to imiprove SLS to 14 secs (norm for 70-79 yo's with EO 14 secs). LTG Duration 05/18/21 Three Impairment Decreased ability to actively exercise for her health, due to back pain. Short Term Goal (STG) Iimprove pt awareness of proper movement with her HEP to prevent increased back pain and dysfunction with exercise . STG Duration Clinical Education Consultant Goal (LTG) Walked 3-5 miles ~ [address] [place] 3-5 days a week. LTG Duration 05/18/21 Two Impairment Back pain interrupts sleep at night (wakes 3-5x/night). Short Term Goal (STG) Pt educated in sleeping positons to decrease number of times she wakes at night. (02/24/21: Educated pt in use of pillow between knees in sidelie. Pt having no pain at nighttime, possibly due to IBP use) STG Duration 02/23/21 (02/24/21: MET GOALL) Custodial Goal (LTG) Improve abdominal strength with pt able to maintain core stability with movement and resistance to LE's in supine in order for the pt to be able to sleep through the night without waking due to back pain. LTG Duration 05/18/21 Progress Towards Goals Progress Towards Goals Slow Progress - Other Progress Comments ~03/15/21, pt suffered recent fall from chair, landing on her L shoulder. Assessment Summary Assessment Pt presents today with report of falling from a chair onto her L shoulder and complains of soreness with decreased mobility. Her bilateral shoulder strength is decreased due to shoulder pain. She demonstrates possible + cervical invovlement with C. traction reducing her L shoulder pain with active shoulder ER/IR. She has palpable pain in her L lateral brachium with tightness present after Waylon shoulder AROM, indicating soft tissue dysfunction. R shoulder AROM in supine is normal. Pain with sitting shoulder flexion is bilaterally. Pt is able to perform active cervical rotation bilaterally ~ 50-60 degrees with tolerable discomfort, but active L sidebend is painful on the left, indicating possible joint or neural dysfunction. Pt doesn't appear to be in any distress and is able to move her neck and shoulders with what appears to be minimal distress. Held L Shoulder AROM ex's with focus today on neck mobility/ stability. Physical Therapy Plan Frequency and Duration Frequency of Treatment 2x/Week Plan of Care Start Date 02/17/21 Plan of Care End Date 05/18/21 Next Visit Focus/Plan Next Note Type Treatment Note Next Visit Plan Recheck & add seated clamshell to HEP, review band walk, assess proper mechanics previously addressed for for home training. POC: Start shoulder stretches (might add STM) to improve flexibility of shoulder and neck (L UT/Lev scap, scalenes) . Robby extension program due to grade 1 retrolisthesis of L/S; Progress Core stabilization program; Modify HEP if L hip mobility improved to include R hip for IR stretch; Add SLS, and if needed R > L hip ER stretch)
--- NOTE | 2021-04-08 07:23 | PT.OTN ---
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) Dorsalgia, unspecified (04/07/21) Muscle weakness (generalized) (04/07/21) Unsteadiness on feet (04/07/21) Physical Therapy Treatment Note PT-OP-A Visit Information Start: 02/14/21 17:54 Freq: Status: Active Protocol: Document 04/07/21 09:07 ER (Rec: 04/07/21 09:46 ER [id number]) Out-Patient Physical Therapy Visit Information Visit Information Visit Type Treatment Note Visit Note JYOTSNA Calle attended and provided instruction under the direct supervision and instruction of KITTY Cid Visit Start Time 09:07 Visit Stop Time 09:45 Total Visit Minutes 38 Visit Number 6 Number of STITCHER HAND Visits 1 Precautions Precautions Arthritis, back pain, neck pain, falls. Recent fall: ~ 03/15/21 from chair, landing on L shoulder. PT-OP-B Current Condition Start: 02/14/21 17:54 Freq: Status: Active Protocol: Document 02/17/21 13:33 LRN (Rec: 02/17/21 15:44 LRN [id number]) Current Condition History of Current Condition Onset Date 6 months ago Current Complaints Pain across the low back, Can 't sleep, poor balance. History of Current Condition Pain in middle lower back started due to repetitive lifting when trying to help finish building a house (tasks such as painting & vacuuming) and from gardening. Has had X-rays taken at [facility], but report unavailable. Pt reports her lower mid back pain radiates across the back and that it is very limiting in activity. She states her pain is less after doing back exercises that her , a retired neurologist, showed her. She takes Tylenol and an allergy medication for the pain. Has tired ice/heat, and heat seems to be more helpful. Pt requests therapy for her balance. States her balance as of 5 yrs ago is also a problem because she is older and too physically active. Last fall being a yr ago while working on her house and carrying a heavy bench and stepping backwards. Prior Treatments and Tests X-rays at [facility], unavailable. Future Testing and Treatments Planned None Developmental History Developmental History Has severe osteoporsis. Was building a house and was doing gardening for the past year, but the pain started worsening in the past 6 months. Has issue with R hand (dominant hand). Complains of a more noteable bruise on R distal forearm after wearing a wrist brace, and R thumb pain. Pt states she is planning on getting it looked at. Treatment Goals Patient/Caregiver Goals Get in better shape and strengthen the body. Walking can be painful. Sleep through the night without waking due to back pain. Prior Functional Status Baseline Function- Gait Walked 3-5 miles ~ [address] [place] e[place]5 days a week. Baseline Function- Recreation/Hobbies Gardening. Baseline Function- Other Slept through the night 8-9 hrs/night. Home exercise program shown by spouse (who was a physician - neurologist) - 30 minute program. Current Functional Impairments (Reported) Functional Limitations- ADL's Waking 3-4x/night due to back pain, but able to go back to sleep. Walking 3x/week in neighborhood with 1-2 hills, ~ 1 hr. Personal Factors Other Personal Factors That May Effect Reportedly severe Osteoporosis Therapy/Recovery , Cleans own house (vacuuming that makes pain worse). PT-OP-C Subjective Start: 02/14/21 17:54 Freq: Status: Active Protocol: Document 04/07/21 09:07 ER (Rec: 04/07/21 09:46 ER [id number]) OP-PT Subjective Patient Comments Patient Comments Pt reported shlds doing alot better and can now reach overhead. [facility] for further assessment of bump on R dorsal surface of hand, wears wrist brace at night and during day to support. Compliant with HEP. She states arms and back start get more sore by end of day so takes ibuprofen for assist. PT-OP-E Functional Tests Start: 02/14/21 17:54 Freq: Status: Active Protocol: Document 03/22/21 09:02 LRN (Rec: 03/22/21 10:07 LRN [id number]) Functional Tests Apley's Scratch Test Action 1- Left Posterior Acromion Action 1- Right 2 below Posterior Acromion Action 2- Left T2 Action 2- Right T1 Action 3- Left L3 Action 3- Right T10 PT-OP-G Mobility & Gait Start: 02/14/21 17:54 Freq: Status: Active Protocol: Document 02/24/21 08:13 LRN (Rec: 02/24/21 09:25 LRN [id number]) OP Gait Assessment Comments Gait Comments Longer stance time on RLE, slight trendelenberg, or gait as if her L LE is longer. PT-OP-H Neuro Start: 02/14/21 17:54 Freq: Status: Active Protocol: Document 02/17/21 13:33 LRN (Rec: 02/17/21 15:44 LRN [id number]) Sensation Evaluation Gross Sensation Gross Sensation WNL Comments Summary Comments Pt complains of tingling in lower legs and feet. Deep Tendon Reflex & Clonus Assessment Deep Tendon Reflex Right Achilles Deep Tendon Reflex 2+ Normal Left Achilles Deep Tendon Reflex 2+ Normal Right Patellar Deep Tendon Reflex 2+ Normal Left Patellar Deep Tendon Reflex 2+ Normal PT-OP-J Posture/Palpation/Skin Start: 02/14/21 17:54 Freq: Status: Active Protocol: Document 02/17/21 13:33 LRN (Rec: 02/17/21 15:44 LRN [id number]) Posture Evaluation Position Standing T-Spine Posture Flattened L-Spine Posture Increased Lordosis,Shifted Left Shoulder Posture (R) Elevated Scapula Posture (R) Elevated Comments Posture Comments Decreased T/S and mild increase L/S curvature. Palpation Assessment Location Low Back Palpation Location In Prone: Lower T/S & L/S spine; QL, Paraspinals, SIJ. Palpation Findings Soft Tissue Tightness, Tenderness Palpation Details Assessed in Prone: Decreased T/S curvature, Tender PA of spinous processes of T11, T12 and mildly lumbar spine. Pelvis & lumbar spine is in L rotation (L SIJ is set deep). L2, L3 C-curve with apex on left. PT-OP-K Range of Motion Start: 02/14/21 17:54 Freq: Status: Active Protocol: Document 03/22/21 09:02 LRN (Rec: 03/22/21 10:07 LRN [id number]) Shoulder Goniometric Range of Motion Shoulder Right Active Shoulder ROM WFL No Testing Position Supine Flexion 170 Abduction 180 External Rotation at 90 degrees 90 Abduction Internal Rotation 90 Internal Rotation Behind Back (text) T10 Left Active Shoulder ROM WFL No Testing Position Supine Flexion 150 Abduction 130 External Rotation at 90 degrees 58 Abduction Internal Rotation 43 Internal Rotation Behind Back (text) L3 PT-OP-L Special Tests Start: 02/14/21 17:54 Freq: Status: Active Protocol: Document 02/24/21 08:13 LRN (Rec: 02/24/21 09:25 LRN [id number]) Special Tests Lumbar Spine Special Tests Straight Leg Raise Test Results Negative L side Comments ~80 deg's bilaterally. Pt had IBP this AM PT-OP-M Strength Start: 02/14/21 17:54 Freq: Status: Active Protocol: Document 02/24/21 08:13 LRN (Rec: 02/24/21 09:25 LRN [id number]) Hip Strength Hip Manual Muscle Testing Right Flexion (L2) 3 Fair Extension (S1) 5 Normal Abduction 3+ Fair+ External Rotation 5 Normal Internal Rotation 5 Normal Left Flexion (L2) 5 Normal Extension (S1) 5 Normal Abduction 5 Normal Adduction 5 Normal External Rotation 4+ Good+ PT-OP-Q Treatments Start: 02/14/21 17:54 Freq: Status: Active Protocol: Document 04/07/21 09:07 ER (Rec: 04/07/21 09:46 ER [id number]) Therapeutic Exercises Supine Exercises Shldr AROM Supine Exercise Name AROM Flex, AB, ER, IR stretch. Added to HEP Side bilateral Reps/Minutes 10 min Comments Cues for 90 degree flexion with ABD, provided with pictures Sitting Exercises Clamshells Side bilateral Resistance L1 TB around knees Reps/Minutes 10x Comments cues for slow eccentric movement, feet together. STS Sitting Exercise Name reviewed HEP Side bilateral Resistance AROM Equipment Used rail Reps/Minutes 10x Comments Performed with arms crossed across chest. Cues for hip hinging. Standing Exercises AP bandwalking Standing Exercise Name forward/ backward Monster Walk Side bilateral Resistance L1TB around ankles> knees Equipment Used cued hover hands over counter Reps/Minutes 6x 10' laps forward, 4x 10' laps backward Comments repeated cues for keeping wide stance, normal step length. Sidestepping w/ TB Standing Exercise Name band walk- reviewed HEP Side bilateral Resistance L1 TB around knees Equipment Used cued hover hands over counter Reps/Minutes 10 ft x4 laps Comments Cues for slow steps, foot clearance. Neuro Re-Education Treatment Balance Activities balance Details tandem, NBOS, added to HEP Surface firm Equipment contact rail PRN Comments 30s NBOS 10 sec tandem Strong cues for performing only with counter handhold available. PT-OP-T Assessment and Plan Start: 02/14/21 17:54 Freq: Status: Active Protocol: Document 04/07/21 09:07 ER (Rec: 04/07/21 09:46 ER [id number]) Physical Therapy Assessment Goals Four Impairment Decreased balance making the pt at risk of falling Impairment MANDO = 24; 20-39% impaired function. Single Leg Stance (SLS) w/EO/ hands across chest, wearing tennis shoes is 2 right, 7 left. Short Term Goal (STG) Improve pt's SLS Ability by 10 secs with hands across her chest, wearing tennis shoes. STG Duration 03/17/21 Correction Goal (LTG) Pt will be able to imiprove SLS to 14 secs (norm for 70-79 yo's with EO 14 secs). LTG Duration 05/18/21 Three Impairment Decreased ability to actively exercise for her health, due to back pain. Short Term Goal (STG) Iimprove pt awareness of proper movement with her HEP to prevent increased back pain and dysfunction with exercise . STG Duration Paint Formulator Goal (LTG) Walked 3-5 miles ~ [address] 3[place]5 days a week. LTG Duration 05/18/21 Two Impairment Back pain interrupts sleep at night (wakes 3-5x/night). Short Term Goal (STG) Pt educated in sleeping positons to decrease number of times she wakes at night. (02/24/21: Educated pt in use of pillow between knees in sidelie. Pt having no pain at nighttime, possibly due to IBP use) STG Duration 02/23/21 (02/24/21: MET GOALL) Paint Formulator Goal (LTG) Improve abdominal strength with pt able to maintain core stability with movement and resistance to LE's in supine in order for the pt to be able to sleep through the night without waking due to back pain. LTG Duration 05/18/21 One Impairment Lacks appropriate self care HEP. Short Term Goal (STG) Pt will be educated in proper body mechanics for ADLs and transfers. (02/24/21: Pt educated in proper transfer body mechanics .) STG Duration 03/03/21 (02/24/21: Partially met goal) Correction Goal (LTG) Pt will be independent with a self care HEP. (02/24/21: HEP: L Piriformis & Lateral hip stretch; TA tightening sup&sidelie)/. LTG Duration 05/18/21 (02/24/21: Progressed) Assessment Summary Assessment Pt indicated she was fully recovered from previous fall. No new falls, and good sleep. Initiated seated resisted clamshells, with good Pt form. Added shoulder AROM exercises to address ADL fatigue and pain. Pt indicated she thought it would help. Progressed Pt to arms crossed over chest with STS, was able to perform easily. Reviewed bandwalks fwd , bkwd, lateral. Pt has difficulty maintaining stance width and requires repeated cueing. Pt only able to maintain balance in tandem ~10 sec B, but showed good reaction speed touching rail to recover. Physical Therapy Plan Frequency and Duration Frequency of Treatment 2x/Week Plan of Care Start Date 02/17/21 Plan of Care End Date 05/18/21 Therapeutic Interventions Therapeutic Interventions Aquatic Therapy,Balance Training,Gait Training,Home Exercise Program,Manual Therapy,Neuromuscular Re- education,Patient/Caregiver Education,Self-Care/Home Management,Soft Tissue Mobilization,Therapeutic Activities,Therapeutic Exercises Modalities Cold Pack/Ice Massage,Electric Stimulation,Hot Packs, Ultrasound Next Visit Focus/Plan Next Note Type Treatment Note Next Visit Plan Recheck band walk, tandem stance balance. Next add SLS. Feed back on goals. POC: assess proper mechanics previously addressed for for home training. POC: Start shoulder stretches (might add STM) to improve flexibility of shoulder and neck (L UT/Lev scap, scalenes) . Robby extension program due to grade 1 retrolisthesis of L/S; Progress Core stabilization program; Modify HEP if L hip mobility improved to include R hip for IR stretch; Add SLS, and if needed R > L hip ER stretch)
--- NOTE | 2021-04-08 15:39 | PT.OTN ---
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) Dorsalgia, unspecified (04/07/21) Muscle weakness (generalized) (04/07/21) Unsteadiness on feet (04/07/21) Physical Therapy Treatment Note PT-OP-A Visit Information Start: 02/14/21 17:54 Freq: Status: Active Protocol: Document 04/07/21 09:07 ER (Rec: 04/07/21 09:46 ER [id number]) Out-Patient Physical Therapy Visit Information Visit Information Visit Type Treatment Note Visit Note JYOTSNA Calle attended and provided instruction under the direct supervision and instruction of KITTY Cid Visit Start Time 09:07 Visit Stop Time 09:45 Total Visit Minutes 38 Visit Number 6 Number of GRIP WRAPPER Visits 1 Precautions Precautions Arthritis, back pain, neck pain, falls. Recent fall: ~ 03/15/21 from chair, landing on L shoulder. PT-OP-B Current Condition Start: 02/14/21 17:54 Freq: Status: Active Protocol: Document 02/17/21 13:33 LRN (Rec: 02/17/21 15:44 LRN [id number]) Current Condition History of Current Condition Onset Date 6 months ago Current Complaints Pain across the low back, Can 't sleep, poor balance. History of Current Condition Pain in middle lower back started due to repetitive lifting when trying to help finish building a house (tasks such as painting & vacuuming) and from gardening. Has had X-rays taken at [facility], but report unavailable. Pt reports her lower mid back pain radiates across the back and that it is very limiting in activity. She states her pain is less after doing back exercises that her , a retired neurologist, showed her. She takes Tylenol and an allergy medication for the pain. Has tired ice/heat, and heat seems to be more helpful. Pt requests therapy for her balance. States her balance as of 5 yrs ago is also a problem because she is older and too physically active. Last fall being a yr ago while working on her house and carrying a heavy bench and stepping backwards. Prior Treatments and Tests X-rays at [facility], unavailable. Future Testing and Treatments Planned None Developmental History Developmental History Has severe osteoporsis. Was building a house and was doing gardening for the past year, but the pain started worsening in the past 6 months. Has issue with R hand (dominant hand). Complains of a more noteable bruise on R distal forearm after wearing a wrist brace, and R thumb pain. Pt states she is planning on getting it looked at. Treatment Goals Patient/Caregiver Goals Get in better shape and strengthen the body. Walking can be painful. Sleep through the night without waking due to back pain. Prior Functional Status Baseline Function- Gait Walked 3-5 miles ~ [address] [place] e-5 days a week. Baseline Function- Recreation/Hobbies Gardening. Baseline Function- Other Slept through the night 8-9 hrs/night. Home exercise program shown by spouse (who was a physician - neurologist) - 30 minute program. Current Functional Impairments (Reported) Functional Limitations- ADL's Waking 3-4x/night due to back pain, but able to go back to sleep. Walking 3x/week in neighborhood with 1-2 hills, ~ 1 hr. Personal Factors Other Personal Factors That May Effect Reportedly severe Osteoporosis Therapy/Recovery , Cleans own house (vacuuming that makes pain worse). PT-OP-C Subjective Start: 02/14/21 17:54 Freq: Status: Active Protocol: Document 04/07/21 09:07 ER (Rec: 04/07/21 09:46 ER [id number]) OP-PT Subjective Patient Comments Patient Comments Pt reported shlds doing alot better and can now reach overhead. She has an appt at [facility] on Apr 12 for further assessment of bump on R dorsal surface of hand, wears wrist brace at night and during day to support. Compliant with HEP. She states arms and back start get more sore by end of day so takes ibuprofen for assist. PT-OP-E Functional Tests Start: 02/14/21 17:54 Freq: Status: Active Protocol: Document 03/22/21 09:02 LRN (Rec: 03/22/21 10:07 LRN [id number]) Functional Tests Apley's Scratch Test Action 1- Left Posterior Acromion Action 1- Right 2 below Posterior Acromion Action 2- Left T2 Action 2- Right T1 Action 3- Left L3 Action 3- Right T10 PT-OP-G Mobility & Gait Start: 02/14/21 17:54 Freq: Status: Active Protocol: Document 02/24/21 08:13 LRN (Rec: 02/24/21 09:25 LRN [id number]) OP Gait Assessment Comments Gait Comments Longer stance time on RLE, slight trendelenberg, or gait as if her L LE is longer. PT-OP-H Neuro Start: 02/14/21 17:54 Freq: Status: Active Protocol: Document 02/17/21 13:33 LRN (Rec: 02/17/21 15:44 LRN [id number]) Sensation Evaluation Gross Sensation Gross Sensation WNL Comments Summary Comments Pt complains of tingling in lower legs and feet. Deep Tendon Reflex & Clonus Assessment Deep Tendon Reflex Right Achilles Deep Tendon Reflex 2+ Normal Left Achilles Deep Tendon Reflex 2+ Normal Right Patellar Deep Tendon Reflex 2+ Normal Left Patellar Deep Tendon Reflex 2+ Normal PT-OP-J Posture/Palpation/Skin Start: 02/14/21 17:54 Freq: Status: Active Protocol: Document 02/17/21 13:33 LRN (Rec: 02/17/21 15:44 LRN [id number]) Posture Evaluation Position Standing T-Spine Posture Flattened L-Spine Posture Increased Lordosis,Shifted Left Shoulder Posture (R) Elevated Scapula Posture (R) Elevated Comments Posture Comments Decreased T/S and mild increase L/S curvature. Palpation Assessment Location Low Back Palpation Location In Prone: Lower T/S & L/S spine; QL, Paraspinals, SIJ. Palpation Findings Soft Tissue Tightness, Tenderness Palpation Details Assessed in Prone: Decreased T/S curvature, Tender PA of spinous processes of T11, T12 and mildly lumbar spine. Pelvis & lumbar spine is in L rotation (L SIJ is set deep). L2, L3 C-curve with apex on left. PT-OP-K Range of Motion Start: 02/14/21 17:54 Freq: Status: Active Protocol: Document 03/22/21 09:02 LRN (Rec: 03/22/21 10:07 LRN [id number]) Shoulder Goniometric Range of Motion Shoulder Right Active Shoulder ROM WFL No Testing Position Supine Flexion 170 Abduction 180 External Rotation at 90 degrees 90 Abduction Internal Rotation 90 Internal Rotation Behind Back (text) T10 Left Active Shoulder ROM WFL No Testing Position Supine Flexion 150 Abduction 130 External Rotation at 90 degrees 58 Abduction Internal Rotation 43 Internal Rotation Behind Back (text) L3 PT-OP-L Special Tests Start: 02/14/21 17:54 Freq: Status: Active Protocol: Document 02/24/21 08:13 LRN (Rec: 02/24/21 09:25 LRN [id number]) Special Tests Lumbar Spine Special Tests Straight Leg Raise Test Results Negative L side Comments ~80 deg's bilaterally. Pt had IBP this AM PT-OP-M Strength Start: 02/14/21 17:54 Freq: Status: Active Protocol: Document 02/24/21 08:13 LRN (Rec: 02/24/21 09:25 LRN [id number]) Hip Strength Hip Manual Muscle Testing Right Flexion (L2) 3 Fair Extension (S1) 5 Normal Abduction 3+ Fair+ External Rotation 5 Normal Internal Rotation 5 Normal Left Flexion (L2) 5 Normal Extension (S1) 5 Normal Abduction 5 Normal Adduction 5 Normal External Rotation 4+ Good+ PT-OP-Q Treatments Start: 02/14/21 17:54 Freq: Status: Active Protocol: Document 04/07/21 09:07 ER (Rec: 04/07/21 09:46 ER [id number]) Therapeutic Exercises Supine Exercises Shldr AROM Supine Exercise Name AROM Flex, AB, ER, IR stretch. Added to HEP Side bilateral Reps/Minutes 10 min Comments Cues for 90 degree flexion with ABD, provided with pictures Sitting Exercises Clamshells Side bilateral Resistance L1 TB around knees Reps/Minutes 10x Comments cues for slow eccentric movement, feet together. STS Sitting Exercise Name reviewed HEP Side bilateral Resistance AROM Equipment Used rail Reps/Minutes 10x Comments Performed with arms crossed across chest. Cues for hip hinging. Standing Exercises AP bandwalking Standing Exercise Name forward/ backward Monster Walk Side bilateral Resistance L1TB around ankles> knees Equipment Used cued hover hands over counter Reps/Minutes 6x 10' laps forward, 4x 10' laps backward Comments repeated cues for keeping wide stance, normal step length. Sidestepping w/ TB Standing Exercise Name band walk- reviewed HEP Side bilateral Resistance L1 TB around knees Equipment Used cued hover hands over counter Reps/Minutes 10 ft x4 laps Comments Cues for slow steps, foot clearance. Neuro Re-Education Treatment Balance Activities balance Details tandem, NBOS, added to HEP Surface firm Equipment contact rail PRN Comments 30s NBOS 10 sec tandem Strong cues for performing only with counter handhold available. PT-OP-T Assessment and Plan Start: 02/14/21 17:54 Freq: Status: Active Protocol: Document 04/07/21 09:07 ER (Rec: 04/07/21 09:46 ER [id number]) Physical Therapy Assessment Goals Four Impairment Decreased balance making the pt at risk of falling Impairment MANDO = 24; 20-39% impaired function. Single Leg Stance (SLS) w/EO/ hands across chest, wearing tennis shoes is 2 right, 7 left. Short Term Goal (STG) Improve pt's SLS Ability by 10 secs with hands across her chest, wearing tennis shoes. STG Duration 03/17/21 Group Home Goal (LTG) Pt will be able to imiprove SLS to 14 secs (norm for 70-79 yo's with EO 14 secs). LTG Duration 05/18/21 Three Impairment Decreased ability to actively exercise for her health, due to back pain. Short Term Goal (STG) Iimprove pt awareness of proper movement with her HEP to prevent increased back pain and dysfunction with exercise . STG Duration Land Management Supervisor Goal (LTG) Walked 3-5 miles ~ [address] 3-5 days a week. LTG Duration 05/18/21 Two Impairment Back pain interrupts sleep at night (wakes 3-5x/night). Short Term Goal (STG) Pt educated in sleeping positons to decrease number of times she wakes at night. (02/24/21: Educated pt in use of pillow between knees in sidelie. Pt having no pain at nighttime, possibly due to IBP use) STG Duration 02/23/21 (02/24/21: MET GOALL) Land Management Supervisor Goal (LTG) Improve abdominal strength with pt able to maintain core stability with movement and resistance to LE's in supine in order for the pt to be able to sleep through the night without waking due to back pain. LTG Duration 05/18/21 One Impairment Lacks appropriate self care HEP. Short Term Goal (STG) Pt will be educated in proper body mechanics for ADLs and transfers. (02/24/21: Pt educated in proper transfer body mechanics .) STG Duration 03/03/21 (02/24/21: Partially met goal) Group Home Goal (LTG) Pt will be independent with a self care HEP. (02/24/21: HEP: L Piriformis & Lateral hip stretch; TA tightening sup&sidelie)/. LTG Duration 05/18/21 (02/24/21: Progressed) Assessment Summary Assessment Pt indicated she was fully recovered from previous fall. No new falls, and good sleep. Initiated seated resisted clamshells, with good Pt form. Added shoulder AROM exercises to address ADL fatigue and pain. Pt indicated she thought it would help. Progressed Pt to arms crossed over chest with STS, was able to perform easily. Reviewed bandwalks fwd , bkwd, lateral. Pt has difficulty maintaining stance width and requires repeated cueing. Pt only able to maintain balance in tandem ~10 sec B, but showed good reaction speed touching rail to recover. Physical Therapy Plan Frequency and Duration Frequency of Treatment 2x/Week Plan of Care Start Date 02/17/21 Plan of Care End Date 05/18/21 Therapeutic Interventions Therapeutic Interventions Aquatic Therapy,Balance Training,Gait Training,Home Exercise Program,Manual Therapy,Neuromuscular Re- education,Patient/Caregiver Education,Self-Care/Home Management,Soft Tissue Mobilization,Therapeutic Activities,Therapeutic Exercises Modalities Cold Pack/Ice Massage,Electric Stimulation,Hot Packs, Ultrasound Next Visit Focus/Plan Next Note Type Treatment Note Next Visit Plan Recheck band walk, tandem stance balance. Next add SLS. Feed back on goals. POC: assess proper mechanics previously addressed for for home training. POC: Start shoulder stretches (might add STM) to improve flexibility of shoulder and neck (L UT/Lev scap, scalenes) . Robby extension program due to grade 1 retrolisthesis of L/S; Progress Core stabilization program; Modify HEP if L hip mobility improved to include R hip for IR stretch; Add SLS, and if needed R > L hip ER stretch)
--- NOTE | 2021-05-09 09:23 | PT-OP ANOTE ---
Per phone pt reports she didn't realize she had an appointment and has been unthawing due to the recent inclement weather. States her tendonitis is resolved, but has L shoulder pain and has been falling. Pt reminded of her remaining 2 visits and discussed POC ending 05/18/21; therefore will reevaluate for continuation of therapy at next visit. Pt agreeable.
--- NOTE | 2021-05-16 16:46 | PT.OTN ---
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 Recent fall: ~ 03/15/21 from chair, landing on L shoulder. PT-OP-B Current Condition Start: 02/14/21 17:54 Freq: Status: Active Protocol: Document 02/17/21 13:33 LRN (Rec: 02/17/21 15:44 LRN [id number]) Current Condition History of Current Condition Onset Date 6 months ago Current Complaints Pain across the low back, Can 't sleep, poor balance. History of Current Condition Pain in middle lower back started due to repetitive lifting when trying to help finish building a house (tasks such as painting & vacuuming) and from gardening. Has had X-rays taken at [facility], but report unavailable. Pt reports her lower mid back pain radiates across the back and that it is very limiting in activity. She states her pain is less after doing back exercises that her , a retired neurologist, showed her. She takes Tylenol and an allergy medication for the pain. Has tired ice/heat, and heat seems to be more helpful. Pt requests therapy for her balance. States her balance as of 5 yrs ago is also a problem because she is older and too physically active. Last fall being a yr ago while working on her house and carrying a heavy bench and stepping backwards. Prior Treatments and Tests X-rays at [facility], unavailable. Future Testing and Treatments Planned None Developmental History Developmental History Has severe osteoporsis. Was building a house and was doing gardening for the past year, but the pain started worsening in the past 6 months. Has issue with R hand (dominant hand). Complains of a more noteable bruise on R distal forearm after wearing a wrist brace, and R thumb pain. Pt states she is planning on getting it looked at. Treatment Goals Patient/Caregiver Goals Get in better shape and strengthen the body. Walking can be painful. Sleep through the night without waking due to back pain. Prior Functional Status Baseline Function- Gait Walked 3-5 miles ~ [address] [place] e-5 days a week. Baseline Function- Recreation/Hobbies Gardening. Baseline Function- Other Slept through the night 8-9 hrs/night. Home exercise program shown by spouse (who was a physician - neurologist) - 30 minute program. Current Functional Impairments (Reported) Functional Limitations- ADL's Waking 3-4x/night due to back pain, but able to go back to sleep. Walking 3x/week in neighborhood with 1-2 hills, ~ 1 hr. Personal Factors Other Personal Factors That May Effect Reportedly severe Osteoporosis Therapy/Recovery , Cleans own house (vacuuming that makes pain worse). PT-OP-C Subjective Start: 02/14/21 17:54 Freq: Status: Active Protocol: Document 05/16/21 09:05 LRN (Rec: 05/16/21 09:49 LRN [id number]) OP-PT Subjective Patient Comments Patient Comments Tendonitis R wrist is fixed. Wants to get the L shoulder more active. Needs a break from physical therapy. Requests DC due to very busy with appointments and planning a trip to [place] in June. States she may come back before then but isn't sure. Patient Questionnaires Oswestry Low Back Index Oswestry Score 4 Oswestry Impairment 1 to 19% Impaired (Score 1-19) PT-OP-E Functional Tests Start: 02/14/21 17:54 Freq: Status: Active Protocol: Document 03/22/21 09:02 LRN (Rec: 03/22/21 10:07 LRN [id number]) Functional Tests Apley's Scratch Test Action 1- Left Posterior Acromion Action 1- Right 2 below Posterior Acromion Action 2- Left T2 Action 2- Right T1 Action 3- Left L3 Action 3- Right T10 PT-OP-G Mobility & Gait Start: 02/14/21 17:54 Freq: Status: Active Protocol: Document 02/24/21 08:13 LRN (Rec: 02/24/21 09:25 LRN [id number]) OP Gait Assessment Comments Gait Comments Longer stance time on RLE, slight trendelenberg, or gait as if her L LE is longer. PT-OP-H Neuro Start: 02/14/21 17:54 Freq: Status: Active Protocol: Document 02/17/21 13:33 LRN (Rec: 02/17/21 15:44 LRN [id number]) Sensation Evaluation Gross Sensation Gross Sensation WNL Comments Summary Comments Pt complains of tingling in lower legs and feet. Deep Tendon Reflex & Clonus Assessment Deep Tendon Reflex Right Achilles Deep Tendon Reflex 2+ Normal Left Achilles Deep Tendon Reflex 2+ Normal Right Patellar Deep Tendon Reflex 2+ Normal Left Patellar Deep Tendon Reflex 2+ Normal PT-OP-J Posture/Palpation/Skin Start: 02/14/21 17:54 Freq: Status: Active Protocol: Document 02/17/21 13:33 LRN (Rec: 02/17/21 15:44 LRN [id number]) Posture Evaluation Position Standing T-Spine Posture Flattened L-Spine Posture Increased Lordosis,Shifted Left Shoulder Posture (R) Elevated Scapula Posture (R) Elevated Comments Posture Comments Decreased T/S and mild increase L/S curvature. Palpation Assessment Location Low Back Palpation Location In Prone: Lower T/S & L/S spine; QL, Paraspinals, SIJ. Palpation Findings Soft Tissue Tightness, Tenderness Palpation Details Assessed in Prone: Decreased T/S curvature, Tender PA of spinous processes of T11, T12 and mildly lumbar spine. Pelvis & lumbar spine is in L rotation (L SIJ is set deep). L2, L3 C-curve with apex on left. PT-OP-K Range of Motion Start: 02/14/21 17:54 Freq: Status: Active Protocol: Document 03/22/21 09:02 LRN (Rec: 03/22/21 10:07 LRN [id number]) Shoulder Goniometric Range of Motion Shoulder Right Active Shoulder ROM WFL No Testing Position Supine Flexion 170 Abduction 180 External Rotation at 90 degrees 90 Abduction Internal Rotation 90 Internal Rotation Behind Back (text) T10 Left Active Shoulder ROM WFL No Testing Position Supine Flexion 150 Abduction 130 External Rotation at 90 degrees 58 Abduction Internal Rotation 43 Internal Rotation Behind Back (text) L3 PT-OP-L Special Tests Start: 02/14/21 17:54 Freq: Status: Active Protocol: Document 02/24/21 08:13 LRN (Rec: 02/24/21 09:25 LRN [id number]) Special Tests Lumbar Spine Special Tests Straight Leg Raise Test Results Negative L side Comments ~80 deg's bilaterally. Pt had IBP this AM PT-OP-M Strength Start: 02/14/21 17:54 Freq: Status: Active Protocol: Document 02/24/21 08:13 LRN (Rec: 02/24/21 09:25 LRN [id number]) Hip Strength Hip Manual Muscle Testing Right Flexion (L2) 3 Fair Extension (S1) 5 Normal Abduction 3+ Fair+ External Rotation 5 Normal Internal Rotation 5 Normal Left Flexion (L2) 5 Normal Extension (S1) 5 Normal Abduction 5 Normal Adduction 5 Normal External Rotation 4+ Good+ PT-OP-Q Treatments Start: 02/14/21 17:54 Freq: Status: Active Protocol: Document 05/16/21 09:05 LRN (Rec: 05/16/21 09:49 LRN [id number]) Therapeutic Exercises Supine Exercises TA Leg lowering w/RAW EGG Supine Exercise Name TA leg lowering w/Raw Egg Side bilateral Reps/Minutes 5-10x each Comments Much phys & v cuing needed. Pt not able to perform correctly. TA leg lowering Supine Exercise Name TA leg lowering Side bilateral Reps/Minutes 10x TA Leg slide Supine Exercise Name TA Leg slide Side bilateral Reps/Minutes 10x 3 Bridging Supine Exercise Name Bridging Reps/Minutes 1 hold x30 Comments Good TA, cued for continual lifts for endurance - painfree response Sidelying Exercises Clamshell Sidelying Exercise Name TA tightening w/clamshell Side bilateral Reps/Minutes 10x 3 Standing Exercises Shoulder IR Standing Exercise Name Shoulder IR Side bilateral Equipment Used Lev2 TB Reps/Minutes 5' Shoulder ER Standing Exercise Name Shoulder ER Side bilateral Equipment Used Lev2 TB Reps/Minutes 5' Self-Care/Home Management Treatment Education Patient Education Home Exercise Program Activities Self-Care/Home Management Activities Issued & reviewed HEP: Core & RC strengthening, bridging, Clamshell, RC strengthening of shoulder ER/IR. PT-OP-T Assessment and Plan Start: 02/14/21 17:54 Freq: Status: Active Protocol: Document 05/16/21 09:05 LRN (Rec: 05/16/21 09:49 LRN [id number]) Physical Therapy Assessment Goals Four Impairment Decreased balance making the pt at risk of falling Impairment MANDO = 24; 20-39% impaired function. Single Leg Stance (SLS) w/EO/ hands across chest, wearing tennis shoes is 2 right, 7 left. Short Term Goal (STG) Improve pt's SLS Ability by 10 secs with hands across her chest, wearing tennis shoes. (05/16/21: Pt in hurry to leave due to spouse waiting). STG Duration 03/17/21 (05/16/21: Not assessed due to time constraints) [facility] Goal (LTG) Pt will be able to imiprove SLS to 14 secs (norm for 70-79 yo's with EO 14 secs). (05/16/21: Pt in hurry to leave due to spouse waiting). LTG Duration 05/18/21 (05/16/21: Not assessed due to time constraints) Three Impairment Decreased ability to actively exercise for her health, due to back pain. Short Term Goal (STG) Improve pt awareness of proper movement with her HEP to prevent increased back pain and dysfunction with exercise. STG Duration (05/16/21: Goal partially met) [facility] Goal (LTG) Walked 3-5 miles ~ [address] [place] 3-5 days a week. LTG Duration 05/18/21 (05/16/21: Pt had not attempted goal at time of discharge) Two Impairment Back pain interrupts sleep at night (wakes 3-5x/night). Short Term Goal (STG) Pt educated in sleeping positons to decrease number of times she wakes at night. (02/24/21: Educated pt in use of pillow between knees in sidelie. Pt having no pain at nighttime, possibly due to IBP use) STG Duration 02/23/21 (02/24/21: MET GOAL ) [facility] Goal (LTG) Improve abdominal strength with pt able to maintain core stability with movement and resistance to LE's in supine in order for the pt to be able to sleep through the night without waking due to back pain. (05/16/21: Pt able to keep core stable with MMT of LE; pt reporting return to normal of back) LTG Duration 05/18/21 (05/16/21: MET GOAL) One Impairment Lacks appropriate self care HEP. Short Term Goal (STG) Pt will be educated in proper body mechanics for ADLs and transfers. (02/24/21: Pt educated in proper transfer body mechanics .) (03/17/21: Body mechanics training for ADLs) STG Duration 03/03/21 (05/16/21: MET GOAL) [facility] Goal (LTG) Pt will be independent with a self care HEP. (02/24/21: HEP: L Piriformis & Lateral hip stretch; TA tightening sup&sidelie). (05/16/21: HEP: Progressive STab/core strengthening program - up to #4/5; Bridging , Clamshell, shoulder ER/IR strengthening). LTG Duration 05/18/21 (05/16/21: MET GOAL FOR CURRENT STATUS) Assessment Summary Assessment Tendonitis R wrist is fixed. Wants to get the L shoulder more active. Pt tolerated shoulder strengthening very well and appears to have a fair understanding of her core strengthening program. Pt attended 7 visits and due to inclement weather was not able to attend all her physical therapy appointments; therefore all goals were not fully addressed. The pt feels she is ready to be placed on a home program for awhile and will return to therapy if needed. She primarily needs rehabilitation for her L shoulder to achieve greater functional ability. Further physical therapy in the future for rotator cuff dysfunction would be appropriate. Pt is being discharged to her HEP at pt request. Physical Therapy Plan Frequency and Duration Frequency of Treatment 2x/Week Plan of Care Start Date 02/17/21 Plan of Care End Date 05/18/21 Discharge Physical Therapy Discharge Reasons Patient Request Discharge Comments Pt would benefit in the future with physical therapy for her L shoulder rotator cuff dysfunction and for balance. Thank you for your referral.
== END 2021-06-07 08:27 | disposition home or self-care (01) ==
LOC: PHYS 09:00
PROVIDERS: Family Provider Internal Medicine; PCP Internal Medicine; Referring Provider Internal Medicine; Visit Provider Internal Medicine
DX: M54.9 Dorsalgia, unspecified (principal); M62.81 Muscle weakness (generalized); M40.30 Flatback syndrome, site unspecified; R26.81 Unsteadiness on feet
CPT/HCPCS: 97110; 97112; 97162; 97530; 97535

== ENCOUNTER → 2021-09-12 11:36 | Outpatient (CLI) | payer MEDICARE, OTHER, SELFPAY ==
[2021-09-12 12:42] LABS: Add Manual Diff / Slide Review NO; Basophils Absolute Auto 0 /uL (0-100); Basophils Percent Auto 0.3 % (0-2); Eosinophils Absolute Auto 0 /uL (0-450); Eosinophils Percent Auto 0.1 % (2-4); Hematocrit 40.2 % (36-46); Hemoglobin 12.8 g/dL (12.0-16.0); Lymphocytes Absolute Auto 1300 /uL (1100-4500); Lymphocytes Percent Auto 8.5 % (25-40); Mean Corpuscular HGB Conc 31.9 % (30-36); Mean Corpuscular Hemoglobin 25.7 PG (26-34); Mean Corpuscular Volume 80.5 fL (80-100); Monocytes Absolute Auto 400 /uL (0-900); Monocytes Percent Auto 2.8 % (3-14); Neutrophils Absolute Auto 13200 /uL (1500-7000); Neutrophils Percent Auto 88.3 % (50-75); Platelet Count 351 X10^3/uL (150-400); Red Blood Cell Count 4.99 X10^6/uL (4.0-5.2); Red Cell Distribution Width 15.6 % (11.6-14.8); White Blood Cell Count 14.9 X10^3/uL (4.5-11.0)
[2021-09-12 13:00] LABS: Erythrocyte Sedimentation Rate 13 MM/HR (0-20)
[2021-09-12 13:05] LABS: Alanine Aminotransferase 18 IU/L (<35); Albumin Globulin Ratio 1.3 (1.0-2.8); Alkaline Phosphatase 74 U/L (38-126); Aspartate Aminotransferase 26 IU/L (14-36); BUN Creatinine Ratio 30.8 (6-22); Bilirubin Total 0.3 mg/dL (0.2-1.3); Blood Urea Nitrogen 20 mg/dL (7-17); C-Reactive Protein Quant 1.1 mg/dL (<1.0); Calcium 9.3 mg/dL (8.4-10.2); Carbon Dioxide 26 mmol/L (22-32); Chloride 104 mmol/L (98-107); Estimated Glomerular Filt Rate > 60 mL/min (>60); Globulin 3.2 g/dL (1.7-4.1); Glucose 169 mg/dL (80-110); HEMOLYSIS < 15 (0-50); Potassium 4.2 mmol/L (3.4-5.1); Sodium 139 mmol/L (137-145); Total Protein 7.2 g/dL (6.3-8.2)
[2021-09-14 14:11] LABS: ANA Screen, IFA Negative (.); Alpha-1 Globulin, Ur 5.3 % (.); Beta Globulin, Ur 31.1 % (.); Gamma Globulin, Ur 16.4 % (.); M-Spike % Not Observed % (Not Observed); Urine Total Protein 8.8 mg/dL (Not Estab.)
== END ==
PROVIDERS: Family Provider Internal Medicine; PCP Internal Medicine; Referring Provider Internal Medicine; Visit Provider Internal Medicine
DX: M35.3 Polymyalgia rheumatica (principal)
CPT/HCPCS: 36415; 80053; 84156; 84166; 85025; 85651; 86038; 86140

== ENCOUNTER 2021-11-11 08:37 | Emergency (ER) | payer MEDICARE, OTHER, SELFPAY ==
[2021-11-11] VITALS (8 sets, daily range): BP systolic 125–170; BP diastolic 65–87; PULSE 63–85; RESP 17–23; O2SAT 95–99; BMI 27.2
--- NOTE | 2021-11-11 08:42 | DI.RAD.S_ITS ---
PROCEDURE: XR CHEST 1V INDICATIONS: chest pain TECHNIQUE: One view of the chest was acquired. COMPARISON: None. FINDINGS: Surgical changes and devices: None. Lungs and pleura: There is likely collapse of the right middle lobe. The lungs are otherwise clear. No pleural effusion or pneumothorax. Mediastinum: Mediastinal contours appear normal. Heart size is normal. Bones and chest wall: No suspicious bony lesions. Overlying soft tissues appear unremarkable. IMPRESSION: Collapsed right middle lobe suggesting central obstructing lesion. If further characterization is warranted, CT of the chest could be used. Dictated by: Lexie Haney M.D. on 11/11/2021 at 9:51 Approved by: Lexie Haney M.D. on 11/11/2021 at 9:52
[2021-11-11 09:04] LABS: COVID19 -Nasal RAPID POSITIVE (Negative)
[2021-11-11 09:15] LABS: Add Manual Diff / Slide Review NO; Basophils Absolute Auto 100 /uL (0-100); Basophils Percent Auto 0.7 % (0-2); Eosinophils Absolute Auto 100 /uL (0-450); Eosinophils Percent Auto 0.8 % (2-4); Hematocrit 38.5 % (36-46); Hemoglobin 12.6 g/dL (12.0-16.0); Lymphocytes Absolute Auto 1500 /uL (1100-4500); Mean Corpuscular HGB Conc 32.6 % (30-36); Mean Corpuscular Hemoglobin 26.2 PG (26-34); Mean Corpuscular Volume 80.2 fL (80-100); Monocytes Absolute Auto 500 /uL (0-900); Monocytes Percent Auto 5.7 % (3-14); Neutrophils Absolute Auto 7200 /uL (1500-7000); Neutrophils Percent Auto 76.8 % (50-75); Platelet Count 281 X10^3/uL (150-400); Red Cell Distribution Width 19.9 % (11.6-14.8); White Blood Cell Count 9.3 X10^3/uL (4.5-11.0)
[2021-11-11 09:24] LABS: INR 1.1 (0.9-1.3); Prothrombin Time 11.9 SECONDS (10.1-12.7)
[2021-11-11 09:29] LABS: Alanine Aminotransferase 20 IU/L (<35); Albumin 3.5 g/dL (3.5-5.0); Alkaline Phosphatase 86 U/L (38-126); Aspartate Aminotransferase 32 IU/L (14-36); BUN Creatinine Ratio 23.4 (6-22); Bilirubin Total 0.4 mg/dL (0.2-1.3); Blood Urea Nitrogen 15 mg/dL (7-17); Calcium 8.7 mg/dL (8.4-10.2); Carbon Dioxide 27 mmol/L (22-32); Chloride 105 mmol/L (98-107); Creatine Kinase 34 U/L (30-135); Estimated Glomerular Filt Rate > 60 mL/min (>60); Globulin 2.8 g/dL (1.7-4.1); Glucose 172 mg/dL (80-110); Potassium 3.8 mmol/L (3.4-5.1); Sodium 139 mmol/L (137-145); Total Protein 6.3 g/dL (6.3-8.2)
[2021-11-11 09:30] LABS: Albumin Globulin Ratio 1.3 (1.0-2.8); HEMOLYSIS < 15 (0-50); Lipase 122 U/L (23-300)
--- NOTE | 2021-11-11 09:32 | ED.CHESTPAIN ---
HPI - Chest Pain General Chief Complaint: Chest Pain Stated Complaint: runny nose; chest pain; funny throat; SOB Time Seen by Provider: 11/11/21 08:53 Source: patient and family Mode of arrival: Ambulatory Limitations: no limitations History of Present Illness HPI narrative: Patient is an 81-year-old female who presents with throat some chest discomfort shortness of breath. She has a history of newly diagnosed polymyalgia rheumatica she is on a tapering dose of prednisone. She said she tested positive for COVID about 2 months ago she then had a negative test 10 days after that. She denies any fever or chills. She has been noticing the sore throat chest discomfort least last 24 hours. She has had extreme fatigue. He denies any productive cough she has not had any fever. She denies any orthopnea. She has very minimal dyspnea with exertion. Related Data Home Medications Medication Instructions Recorded Confirmed simvastatin 40 mg tablet (Zocor) ##0 08/23/16 Previous Rx's Medication Instructions Recorded cephalexin 500 mg capsule (Keflex) 500 mg PO TID #21 caps 11/01/19 nirmatrelvir 300 mg (150 mg x See Rx Instructions PO .COMPLEX 11/11/21 2)-ritonavir 100 mg tablet (EUA) #30 tabs (Paxlovid 300 mg () Allergies Allergy/AdvReac Type Severity Reaction Status Date / Time amoxicillin [From AUGMENTIN] Allergy Unknown Verified 11/11/21 08:56 clavulanic acid Allergy Unknown Verified 11/11/21 08:56 [From AUGMENTIN] Penicillins [PENICILLINS] Allergy Unknown Verified 11/11/21 08:56 Review of Systems Review of Systems Narrative: GENERAL: Denies chills, fatigue, malaise, fever, sweats, travel HEENT: See HPI RESPIRATORY: Denies dyspnea, cough, wheezing, hemoptysis, sputum. CARDIOVASCULAR: Denies chest pain, palpitations, orthopnea, edema GASTROINTESTINAL: Denies nausea, vomiting, abdominal pain, diarrhea, constipation, melena. : Denies dysuria, frequency, incontinence, hematuria, urinary retention, flank pain. MUSCULOSKELETAL: Denies weakness, joint pain, or bony pain SKIN: No rash, no erythema, no pruritus NEUROLOGIC: Denies weakness, dizziness, headache, numbness, change in speech, confusion PSYCHIATRIC: No concerning psychosocial issues. 12 point review of systems is negative except for those stated above and HPI Patient History Medical History (Updated 11/11/21 @ 10:44 by Grace Jiang DO) Hyperlipidemia Social History Smoking Status: Former smoker Smoking Status: Former smoker alcohol intake frequency: holidays/special occasions only Alcohol type: wine Substance Use Type: does not use Exam Initial Vital Signs Initial Vital Signs: Vital Signs Pulse Rate 79 11/11/21 08:56 Respiratory Rate 18 11/11/21 08:56 Blood Pressure 125/73 11/11/21 08:56 Pulse Oximetry 95 11/11/21 08:56 Oxygen Delivery Method 11/11/21 08:56 GENERAL: Very pleasant [place] 81-year-old female HEENT: Head atraumatic,EOMI, pupils reactive, face symmetric, moist mucous membranes CARDIOVASCULAR: Regular rate and rhythm without murmurs, rubs or gallops. RESPIRATORY: Breath sounds equal bilaterally, no wheezes rales or rhonchi. ABDOMEN: Soft, nontender. Normoactive bowel sounds all 4 quadrants. No guarding or rebound. EXTREMITIES: Normal range of motion, no clubbing or edema. Neurovascularly intact NEUROLOGICAL: Alert and oriented x4.Normal gait and speech. SKIN: Warm, dry, no laceration, no petechiae, no rashes or lesions. Course Orders Ordered: ED Orders 11/11/21 10:55 CT chest wo con Stat 11/11/21 11:07 Urine Microscopic Stat 11/11/21 12:23 CT chest abd pel w con Stat Vital Signs Vital signs: Vital Signs - 8 hr 11/11/21 11:40 11/11/21 11:41 11/11/21 11:41 Pulse Rate 73 71 Respiratory Rate 21 17 Blood Pressure 149/65 H Pulse Oximetry 97 97 Oxygen Delivery Method Room Air 11/11/21 12:00 11/11/21 12:30 11/11/21 12:39 Pulse Rate 63 73 85 Respiratory Rate 18 18 23 Blood Pressure Pulse Oximetry 96 97 99 Oxygen Delivery Method Room Air 11/11/21 15:53 Pulse Rate Respiratory Rate Blood Pressure 170/87 H Pulse Oximetry Oxygen Delivery Method MDM - Chest Pain Lab Data Result diagrams: 11/11/21 08:52 11/11/21 08:52 Labs: Lab Results 11/11/21 11/11/21 11/11/21 Range/Units 08:47 08:52 08:52 WBC 9.3 (4.5-11.0) X10^3/uL RBC 4.80 (4.0-5.2) X10^6/uL Hgb 12.6 (12.0-16.0) g/dL Hct 38.5 (36-46) % MCV 80.2 (80-100) fL MCH 26.2 (26-34) PG MCHC 32.6 (30-36) % RDW 19.9 H (11.6-14.8) % Plt Count 281 (150-400) X10^3/uL Neut % (Auto) 76.8 H (50-75) % Lymph % (Auto) 16.0 L (25-40) % O'Brien % (Auto) 5.7 (3-14) % Eos % (Auto) 0.8 L (2-4) % Baso % (Auto) 0.7 (0-2) % Neut # (Auto) 7200 H (7701-1829) /uL Lymph # (Auto) 1500 (6106-5032) /uL O'Brien # (Auto) 500 (0-900) /uL Eos # (Auto) 100 (0-450) /uL Baso # (Auto) 100 (0-100) /uL PT 11.9 (10.1-12.7) SECONDS INR 1.1 (0.9-1.3) APTT (26.4-36.2) SECONDS Sodium (137-145) mmol/L Potassium (3.4-5.1) mmol/L Chloride (98-107) mmol/L Carbon Dioxide (22-32) mmol/L BUN (7-17) mg/dL Creatinine (0.52-1.04) mg/dL Estimated GFR (>60) mL/min BUN/Creatinine Ratio (6-22) Glucose (80-110) mg/dL Calcium (8.4-10.2) mg/dL Magnesium (1.6-2.3) mg/dL Total Bilirubin (0.2-1.3) mg/dL AST (14-36) IU/L ALT (<35) IU/L Alkaline Phosphatase (38-126) U/L Total Creatine Kinase (30-135) U/L CK-MB (CK-2) CK-MB (CK-2) Rel Index Troponin I (0.01-0.034) ng/mL NT-Pro-B Natriuret Pep (<450) pg/mL Total Protein (6.3-8.2) g/dL Albumin (3.5-5.0) g/dL Globulin (1.7-4.1) g/dL Albumin/Globulin Ratio (1.0-2.8) Lipase (23-300) U/L Urine RBC (0-5/HPF) Urine WBC (0-5/HPF) Ur Squamous Epith Cells (0-5/HPF) Urine Bacteria (None) Ur Culture Indicated? SARS-CoV-2 (PCR) Positive H (Negative) 11/11/21 11/11/21 11/11/21 Range/Units 08:52 08:52 08:52 WBC (4.5-11.0) X10^3/uL RBC (4.0-5.2) X10^6/uL Hgb (12.0-16.0) g/dL Hct (36-46) % MCV (80-100) fL MCH (26-34) PG MCHC (30-36) % RDW (11.6-14.8) % Plt Count (150-400) X10^3/uL Neut % (Auto) (50-75) % Lymph % (Auto) (25-40) % O'Brien % (Auto) (3-14) % Eos % (Auto) (2-4) % Baso % (Auto) (0-2) % Neut # (Auto) (8040-2072) /uL Lymph # (Auto) (8039-9512) /uL O'Brien # (Auto) (0-900) /uL Eos # (Auto) (0-450) /uL Baso # (Auto) (0-100) /uL PT (10.1-12.7) SECONDS INR (0.9-1.3) APTT 26 L (26.4-36.2) SECONDS Sodium 139 (137-145) mmol/L Potassium 3.8 (3.4-5.1) mmol/L Chloride 105 (98-107) mmol/L Carbon Dioxide 27 (22-32) mmol/L BUN 15 (7-17) mg/dL Creatinine 0.64 (0.52-1.04) mg/dL Estimated GFR > 60 (>60) mL/min BUN/Creatinine Ratio 23.4 H (6-22) Glucose 172 H (80-110) mg/dL Calcium 8.7 (8.4-10.2) mg/dL Magnesium 2.0 (1.6-2.3) mg/dL Total Bilirubin 0.4 (0.2-1.3) mg/dL AST 32 (14-36) IU/L ALT 20 (<35) IU/L Alkaline Phosphatase 86 (38-126) U/L Total Creatine Kinase 34 (30-135) U/L CK-MB (CK-2) TNP CK-MB (CK-2) Rel Index TNP Troponin I < 0.012 (0.01-0.034) ng/mL NT-Pro-B Natriuret Pep 159 (<450) pg/mL Total Protein 6.3 (6.3-8.2) g/dL Albumin 3.5 (3.5-5.0) g/dL Globulin 2.8 (1.7-4.1) g/dL Albumin/Globulin Ratio 1.3 (1.0-2.8) Lipase 122 (23-300) U/L Urine RBC (0-5/HPF) Urine WBC (0-5/HPF) Ur Squamous Epith Cells (0-5/HPF) Urine Bacteria (None) Ur Culture Indicated? SARS-CoV-2 (PCR) (Negative) 11/11/21 Range/Units 11:07 WBC (4.5-11.0) X10^3/uL RBC (4.0-5.2) X10^6/uL Hgb (12.0-16.0) g/dL Hct (36-46) % MCV (80-100) fL MCH (26-34) PG MCHC (30-36) % RDW (11.6-14.8) % Plt Count (150-400) X10^3/uL Neut % (Auto) (50-75) % Lymph % (Auto) (25-40) % O'Brien % (Auto) (3-14) % Eos % (Auto) (2-4) % Baso % (Auto) (0-2) % Neut # (Auto) (3395-5007) /uL Lymph # (Auto) (0758-4115) /uL O'Brien # (Auto) (0-900) /uL Eos # (Auto) (0-450) /uL Baso # (Auto) (0-100) /uL PT (10.1-12.7) SECONDS INR (0.9-1.3) APTT (26.4-36.2) SECONDS Sodium (137-145) mmol/L Potassium (3.4-5.1) mmol/L Chloride (98-107) mmol/L Carbon Dioxide (22-32) mmol/L BUN (7-17) mg/dL Creatinine (0.52-1.04) mg/dL Estimated GFR (>60) mL/min BUN/Creatinine Ratio (6-22) Glucose (80-110) mg/dL Calcium (8.4-10.2) mg/dL Magnesium (1.6-2.3) mg/dL Total Bilirubin (0.2-1.3) mg/dL AST (14-36) IU/L ALT (<35) IU/L Alkaline Phosphatase (38-126) U/L Total Creatine Kinase (30-135) U/L CK-MB (CK-2) CK-MB (CK-2) Rel Index Troponin I (0.01-0.034) ng/mL NT-Pro-B Natriuret Pep (<450) pg/mL Total Protein (6.3-8.2) g/dL Albumin (3.5-5.0) g/dL Globulin (1.7-4.1) g/dL Albumin/Globulin Ratio (1.0-2.8) Lipase (23-300) U/L Urine RBC 0-1/hpf (0-5/HPF) Urine WBC None seen (0-5/HPF) Ur Squamous Epith Cells 1-5 /hpf (0-5/HPF) Urine Bacteria None seen (None) Ur Culture Indicated? Cult not indicated SARS-CoV-2 (PCR) (Negative) Urine Dip Bedside Urine Glucose Negative Bedside Urine Bilirubin - Negative Bedside Urine Ketone - Negative Urine Specific Ryde 1.030 Bedside Urine Occult Blood - Negative Bedside Urine pH 6.0 Bedside Urine Protein - Negative Bedside Urine Urobilinogen - Negative Bedside Urine Nitrite - Negative Bedside Urine Leukocytes + 70 Esterase Imaging Data Chest x-ray: Radiologist's Impression: Signed Patient: Mackenzie Bermudez MR#: [id number] : 1940 Acct:[id number] Age/Sex: 81 / F Date of Service: 11/11/21 Loc: ED Accession Number: [id number] ?? Procedure: XR chest 1V Ordering Provider: Grace Jiang D.O. PROCEDURE:? XR CHEST 1V ? INDICATIONS:? chest pain ? TECHNIQUE:? One view of the chest was acquired.? ? COMPARISON:? None. ? FINDINGS:? ? Surgical changes and devices:? None.? ? Lungs and pleura:? There is likely collapse of the right middle lobe.? The lungs are otherwise clear.? No pleural effusion or pneumothorax. ? Mediastinum:? Mediastinal contours appear normal.? Heart size is normal.? ? Bones and chest wall:? No suspicious bony lesions.? Overlying soft tissues appear unremarkable.? ? IMPRESSION:? Collapsed right middle lobe suggesting central obstructing lesion.? If further characterization is warranted, CT of the chest could be used. ? ? Dictated by: Leixe Haney M.D. on 11/11/2021 at 9:51 ? ? CT scan - chest: Radiologist's Impression: CT Scan Report Signed Patient: Mackenzie Bermudez MR#: [id number] : 1940 Acct:[id number] Age/Sex: 81 / F Date of Service: 11/11/21 Loc: ED Accession Number: [id number] ?? Procedure: CT chest wo con Ordering Provider: Grace Jiang D.O. PROCEDURE:? CT CHEST WO CON ? INDICATIONS:? right obstructing lesion ? TECHNIQUE: Noncontrast 5 mm thick sections acquired from the pulmonary apices to the posterior costophrenic angles.? 1 mm lung window, 5 mm thick coronal and sagittal and 7 mm axial MIP reformats were then acquired.? For radiation dose reduction, the following was used:? automated exposure control, adjustment of mA and/or kV according to patient size.? ? COMPARISON:? [facility], , XR CHEST 1V, 11/11/2021, 9:15. ? FINDINGS:? Image quality:? Excellent.? ? Lungs and pleura:? There is mild centrilobular emphysema with an apical predominance.? There is complete collapse of the right middle lobe.? No air bronchograms are visualized. ?No other acute airspace opacities.? No pleural effusion or pneumothorax.? There is tapered narrowing of the main right middle lobe bronchus suggesting extrinsic compression. ? Mediastinum:? Heart size is normal.? No pericardial effusion.? There is a 1.5 cm paraesophageal lymph node noted (series 2/image 41).? Mediastinal adenopathy includes a pretracheal 1.4 cm in diameter lymph node.? No left hilar adenopathy.? No discrete hilar mass is visualized in the absence of contrast in the region of the tapered narrowing of the main right middle lobe bronchus.? Thoracic aorta and central pulmonary arteries are normal in size. Scattered atheromatous calcifications are present within the aortic arch. ?Esophagus is normal in caliber.? No hiatal hernia.? ? Bones and chest wall:? No suspicious bony lesions.? No vertebral body compression fractures.? No axillary or supraclavicular adenopathy by size criteria.? Thyroid gland is unremarkable .? ? Abdomen:? Multiple ill-defined hypodense lesions are visualized within the liver.? For example, a lesion within hepatic segment VII measures 2.6 cm in diameter.? A lesion within hepatic segment measures 4 cm in diameter, and a lesion within hepatic segment IV measures 2.7 cm in diameter. ? IMPRESSION:? ? 1. Complete collapse of the right middle lobe without air bronchograms.? There is tapered narrowing of the main right middle lobe bronchus.? In the absence of contrast, no discrete obstructive lesion is visualized; however a central lesion is suspected. ? 2. Paraesophageal and mediastinal adenopathy suspicious for svetlana metastasis. ? 3. Multiple ill-defined hypodense hepatic lesions suspicious for hepatic metastasis. ? Overall, findings suggest metastatic disease from an unknown primary.? Chest abdomen and pelvic CT with oral and IV contrast is recommended to further characterize findings.? ? ? Dictated by: Lexie Haney M.D. on 11/11/2021 at 11:46 ? ? Approved by: Lexie Haney M.D. on 11/11/2021 at 11:59 ? CT scan - abdomen/pelvis: Radiologist's Impression: CT Scan Report Signed Patient: Mackenzie Bermudez MR#: [id number] : 1940 Acct:[id number] Age/Sex: 81 / F Date of Service: 11/11/21 Loc: ED Accession Number: [id number] ?? Procedure: CT chest abd pel w con Ordering Provider: Grace Jiang D.O. PROCEDURE:? CT CHEST ABD PEL W CON ? INDICATIONS:? cancer ? TECHNIQUE:? After the administration of oral and intravenous contrast, axial sections acquired from the supraclavicular neck to the pubic symphysis.? Coronal and sagittal reformats were performed.? For radiation dose reduction, the following was used:? automated exposure control, adjustment of mA and/or kV according to patient size.? ? COMPARISON:[facility], CT, CT CHEST WO CON, 11/11/2021, 11:25. ? FINDINGS:? Image quality:? Excellent.? ? CHEST: Lower Neck: No enlarged lymph nodes.? Thyroid: Within normal limits. Axillae: No enlarged lymph nodes. Chest Wall:? Unremarkable.? ? Lungs and Airways:? There is complete obstruction of the right middle lobe bronchus with postobstructive atelectasis of the entire right middle lobe as seen on the CT from earlier the same day.? No well-defined enhancing pulmonary mass is seen.? There is mild ground-glass opacity and reticulations with slightly spiculated appearance of the right upper lobe along the minor fissure best demonstrated on sagittal images (52/4).? The central airways are otherwise patent.? Mild centrilobular emphysema. Pleura: No pneumothorax or pleural effusions.? ? Heart: Heart size is normal.? No pericardial effusion.? Mild coronary artery calcifications. Thoracic Vessels: The aorta and pulmonary arteries demonstrate normal size.? Mild to moderate aortic atherosclerotic calcifications. Mediastinum and Claudia:? Multiple mildly enlarged mediastinal lymph nodes are seen.? For example, a precarinal lymph node measures 1.3 cm in short axis diameter (30/7).? An azygo-esophageal recess lymph node measures 1.4 cm in short axis (47/7).? No definite contralateral mediastinal lymphadenopathy.? A right hilar lymph node measures 1.2 cm in short axis (35/7). Esophagus: No wall thickening.? No hiatal hernia. ? ? ABDOMEN: Liver:? Multiple hypoattenuating masses are seen throughout both lobes of the liver.? For example, a 3.2 x 2.6 cm lesion is seen in the right hepatic lobe at the dome (54/7).? A lesion in the left hepatic lobe adjacent to the falciform ligament measures 2.4 x 2.3 cm (62/7)..? ? Gallbladder:? Unremarkable. Biliary ducts:? Unremarkable.? ? Pancreas:? A low-density lesion is seen in the tail the pancreas measuring 1 x 0.9 cm (65/7).? No pancreatic ductal dilatation..? ? Spleen:? Unremarkable.? ? Adrenal Glands:? Unremarkable.? ? Kidneys and Ureters:? A fluid attenuation cyst in the interpolar region of the left kidney measures 7.6 x 7.2 cm.? ? ? Stomach and Bowel:? Numerous diverticula are seen in the colon without signs of acute diverticulitis. Peritoneum:? No abnormal intraperitoneal fluid.? No free air.? ? Ventral Wall: ? No hernia.? Abdominal Nodes:? No retroperitoneal or mesenteric adenopathy by size criteria.? Vessels:? Moderate to severe aortic atherosclerotic calcifications.? Mild fusiform dilation of the infrarenal abdominal aorta is seen measuring up to 2.2 x 1.8 cm. ? PELVIS: Pelvic Organs:? Status post hysterectomy. Bladder:? Small foci of gas are seen in the nondependent portion of the bladder.? ? Pelvic Nodes: No enlarged lymph nodes.? Miscellaneous: No inguinal hernias are seen. ? ? ? Bones:? Mild grade 1 retrolisthesis of L2 on L3 measuring 4 mm.? No suspicious osteolytic or osteoblastic lesion is seen. ? IMPRESSION:? 1. Obstruction of the right middle lobe bronchus is again seen with postobstructive atelectasis involving the entire right middle lobe.? Irregular enhancement is seen within the right middle lobe without a clearly defined mass.? Possible spiculations or septal thickening is seen in the right upper lobe adjacent to the minor fissure.? Findings are most suspicious for a perihilar pulmonary malignancy. ? 2. Right hilar and right mediastinal lymphadenopathy is suspicious for svetlana metastatic disease. ? 3. Multiple hypoattenuating masses in the liver are suspicious for hepatic metastatic disease. ? ? ? Dictated by: Román Lai M.D. on 11/11/2021 at 15:21 ?? ECG Data Interpretation: Normal sinus rhythm rate 76 AK interval 142 QRS [address] changes no T-wave inversion MDM Narrative Medical decision making narrative: Overall appears well. Blood work is reassuring chest x-ray is negative. Patient says that I had covid just a few weeks ago they even had a negative test about 10 days ago. However she is again positive. Is likely recurrence because she is symptomatic with sore throat and some shortness of breath. Chest x-ray does show middle lobe atelectasis. Chest T CT for that there is probably obstructed bronchogram. Chest abdomen pelvis CT confirms probable metastatic cancer. Patient is not hypoxic. Blood work is overall reassuring. I have called and spoken to her primary care provider about need for bronchoscopy for diagnosis and probably therapeutic all along with referral to Oncology. She has been made aware and grateful for the call. Discharge Plan Departure Patient Disposition: Home Clinical Impression: COVID-19 Instructions: DI for COVID-19 (Suspected or Confirmed ) Activity Restrictions/Additional Instructions: *You have been diagnosed with COVID-19 *What to do: And started to say that you have COVID again. Please continue to rest, in quarantine. Monitor symptoms. If symptoms get significantly worse than may start medication *Continue to take medications as directed Paxlovid take as directed (start within 5 days of symptoms) *Follow up with your primary care provider in 2-3 days or call [phone] *Return to ER if you should have oxygen less than 90%, not drinking or eating, increased chest pain or shortness of [or] any new, worsening or concerning symptoms Prescriptions: New Paxlovid (EUA) 150 mg x 2- 100 mg tablet See Rx Instructions PO .COMPLEX Qty: 30 0RF Rx Instructions: take TWO 150 mg tablets of nirmatrelvir with ONE 100 mg tablet of ritonavir twice daily for 5 days No Action simvastatin [Zocor] 40 MG tablet Qty: 0 cephalexin [Keflex] 500 mg capsule 500 mg PO TID Qty: 21 0RF Referrals: Peace Dhillon MD [Primary Care Provider] - Visit Report Forms: Patient Portal/API
[2021-11-11 09:33] LABS: PTT Partial Thromboplastin Tim 26 SECONDS (26.4-36.2)
[2021-11-11 09:38] LABS: NT-proBNP (BNP-Adult 18+) 159 pg/mL (<450)
[2021-11-11 09:40] LABS: Troponin I < 0.012 ng/mL (0.01-0.034)
--- NOTE | 2021-11-11 10:55 | DI.CT.S_ITS ---
PROCEDURE: CT CHEST WO CON INDICATIONS: right obstructing lesion TECHNIQUE: Noncontrast 5 mm thick sections acquired from the pulmonary apices to the posterior costophrenic angles. 1 mm lung window, 5 mm thick coronal and sagittal and 7 mm axial MIP reformats were then acquired. For radiation dose reduction, the following was used: automated exposure control, adjustment of mA and/or kV according to patient size. COMPARISON: [facility], CR, XR CHEST 1V, 11/11/2021, 9:15. FINDINGS: Image quality: Excellent. Lungs and pleura: There is mild centrilobular emphysema with an apical predominance. There is complete collapse of the right middle lobe. No air bronchograms are visualized. No other acute airspace opacities. No pleural effusion or pneumothorax. There is tapered narrowing of the main right middle lobe bronchus suggesting extrinsic compression. Mediastinum: Heart size is normal. No pericardial effusion. There is a 1.5 cm paraesophageal lymph node noted (series 2/image 41). Mediastinal adenopathy includes a pretracheal 1.4 cm in diameter lymph node. No left hilar adenopathy. No discrete hilar mass is visualized in the absence of contrast in the region of the tapered narrowing of the main right middle lobe bronchus. Thoracic aorta and central pulmonary arteries are normal in size. Scattered atheromatous calcifications are present within the aortic arch. Esophagus is normal in caliber. No hiatal hernia. Bones and chest wall: No suspicious bony lesions. No vertebral body compression fractures. No axillary or supraclavicular adenopathy by size criteria. Thyroid gland is unremarkable . Abdomen: Multiple ill-defined hypodense lesions are visualized within the liver. For example, a lesion within hepatic segment VII measures 2.6 cm in diameter. A lesion within hepatic segment measures 4 cm in diameter, and a lesion within hepatic segment IV measures 2.7 cm in diameter. IMPRESSION: 1. Complete collapse of the right middle lobe without air bronchograms. There is tapered narrowing of the main right middle lobe bronchus. In the absence of contrast, no discrete obstructive lesion is visualized; however a central lesion is suspected. 2. Paraesophageal and mediastinal adenopathy suspicious for svetlana metastasis. 3. Multiple ill-defined hypodense hepatic lesions suspicious for hepatic metastasis. Overall, findings suggest metastatic disease from an unknown primary. Chest abdomen and pelvic CT with oral and IV contrast is recommended to further characterize findings. Dictated by: Lexie Haney M.D. on 11/11/2021 at 11:46 Approved by: Lexie Haney M.D. on 11/11/2021 at 11:59
[2021-11-11 11:52] LABS: Bacteria Urine None Seen; Culture Indicated Urine Cult Not Indicated; RBC Urine 0-1/HPF (0-5/HPF); Squamous Epithelial Cell Urine 1-5 /HPF (0-5/HPF); WBC Urine None Seen (0-5/HPF)
--- NOTE | 2021-11-11 12:23 | DI.CT.S_ITS ---
PROCEDURE: CT CHEST ABD PEL W CON INDICATIONS: cancer TECHNIQUE: After the administration of oral and intravenous contrast, axial sections acquired from the supraclavicular neck to the pubic symphysis. Coronal and sagittal reformats were performed. For radiation dose reduction, the following was used: automated exposure control, adjustment of mA and/or kV according to patient size. COMPARISON:[facility], CT, CT CHEST WO CON, 11/11/2021, 11:25. FINDINGS: Image quality: Excellent. CHEST: Lower Neck: No enlarged lymph nodes. Thyroid: Within normal limits. Axillae: No enlarged lymph nodes. Chest Wall: Unremarkable. Lungs and Airways: There is complete obstruction of the right middle lobe bronchus with postobstructive atelectasis of the entire right middle lobe as seen on the CT from earlier the same day. No well-defined enhancing pulmonary mass is seen. There is mild ground-glass opacity and reticulations with slightly spiculated appearance of the right upper lobe along the minor fissure best demonstrated on sagittal images (52/4). The central airways are otherwise patent. Mild centrilobular emphysema. Pleura: No pneumothorax or pleural effusions. Heart: Heart size is normal. No pericardial effusion. Mild coronary artery calcifications. Thoracic Vessels: The aorta and pulmonary arteries demonstrate normal size. Mild to moderate aortic atherosclerotic calcifications. Mediastinum and Claudia: Multiple mildly enlarged mediastinal lymph nodes are seen. For example, a precarinal lymph node measures 1.3 cm in short axis diameter (30/7). An azygo-esophageal recess lymph node measures 1.4 cm in short axis (47/7). No definite contralateral mediastinal lymphadenopathy. A right hilar lymph node measures 1.2 cm in short axis (35/7). Esophagus: No wall thickening. No hiatal hernia. ABDOMEN: Liver: Multiple hypoattenuating masses are seen throughout both lobes of the liver. For example, a 3.2 x 2.6 cm lesion is seen in the right hepatic lobe at the dome (54/7). A lesion in the left hepatic lobe adjacent to the falciform ligament measures 2.4 x 2.3 cm (62/7).. Gallbladder: Unremarkable. Biliary ducts: Unremarkable. Pancreas: A low-density lesion is seen in the tail the pancreas measuring 1 x 0.9 cm (65/7). No pancreatic ductal dilatation.. Spleen: Unremarkable. Adrenal Glands: Unremarkable. Kidneys and Ureters: A fluid attenuation cyst in the interpolar region of the left kidney measures 7.6 x 7.2 cm. Stomach and Bowel: Numerous diverticula are seen in the colon without signs of acute diverticulitis. Peritoneum: No abnormal intraperitoneal fluid. No free air. Ventral Wall: No hernia. Abdominal Nodes: No retroperitoneal or mesenteric adenopathy by size criteria. Vessels: Moderate to severe aortic atherosclerotic calcifications. Mild fusiform dilation of the infrarenal abdominal aorta is seen measuring up to 2.2 x 1.8 cm. PELVIS: Pelvic Organs: Status post hysterectomy. Bladder: Small foci of gas are seen in the nondependent portion of the bladder. Pelvic Nodes: No enlarged lymph nodes. Miscellaneous: No inguinal hernias are seen. Bones: Mild grade 1 retrolisthesis of L2 on L3 measuring 4 mm. No suspicious osteolytic or osteoblastic lesion is seen. IMPRESSION: 1. Obstruction of the right middle lobe bronchus is again seen with postobstructive atelectasis involving the entire right middle lobe. Irregular enhancement is seen within the right middle lobe without a clearly defined mass. Possible spiculations or septal thickening is seen in the right upper lobe adjacent to the minor fissure. Findings are most suspicious for a perihilar pulmonary malignancy. 2. Right hilar and right mediastinal lymphadenopathy is suspicious for svetlana metastatic disease. 3. Multiple hypoattenuating masses in the liver are suspicious for hepatic metastatic disease. Dictated by: Román Lai M.D. on 11/11/2021 at 15:21 Approved by: Román Lai M.D. on 11/11/2021 at 15:36
== END 2021-11-11 16:18 | disposition home or self-care (01) ==
PROVIDERS: Emergency Provider Emergency Medicine; Family Provider Internal Medicine; PCP Internal Medicine
DX: U07.1 COVID-19 (principal); R07.9 Chest pain, unspecified; Z86.16 Personal history of COVID-19
CPT/HCPCS: 71045; 71250; 71260; 74177; 80053; 81003; 81015; 82550; 83690; 83735; 83880; 84484; 85025; 85610; 85730; 87635; 93005; 93010; 99284; C9803; Q9967

== ENCOUNTER → 2021-11-28 14:13 | Outpatient (CLI) | payer MEDICARE, OTHER, SELFPAY ==
[2021-11-28 14:56] LABS: Ammonia (NH3) < 9 umol/L (9-30)
[2021-11-28 15:01] LABS: INR 1.3 (0.9-1.3); Prothrombin Time 14.4 SECONDS (10.1-12.7)
[2021-11-28 15:06] LABS: Alanine Aminotransferase 28 IU/L (<35); Albumin 3.6 g/dL (3.5-5.0); Alkaline Phosphatase 114 U/L (38-126); Aspartate Aminotransferase 48 IU/L (14-36); BUN Creatinine Ratio 30.2 (6-22); Bilirubin Total 0.3 mg/dL (0.2-1.3); Blood Urea Nitrogen 19 mg/dL (7-17); Carbon Dioxide 28 mmol/L (22-32); Chloride 101 mmol/L (98-107); Estimated Glomerular Filt Rate > 60 mL/min (>60); Globulin 3.5 g/dL (1.7-4.1); Glucose 172 mg/dL (80-110); HEMOLYSIS < 15 (0-50); Potassium 4.3 mmol/L (3.4-5.1); Sodium 139 mmol/L (137-145); Total Protein 7.1 g/dL (6.3-8.2)
[2021-11-28 15:27] LABS: Add Manual Diff / Slide Review NO; Basophils Absolute Auto 100 /uL (0-100); Basophils Percent Auto 0.5 % (0-2); Eosinophils Absolute Auto 0 /uL (0-450); Eosinophils Percent Auto 0.2 % (2-4); Hematocrit 36.1 % (36-46); Hemoglobin 11.8 g/dL (12.0-16.0); Lymphocytes Absolute Auto 800 /uL (1100-4500); Lymphocytes Percent Auto 4.1 % (25-40); Mean Corpuscular HGB Conc 32.9 % (30-36); Mean Corpuscular Hemoglobin 26.1 PG (26-34); Mean Corpuscular Volume 79.6 fL (80-100); Monocytes Absolute Auto 1400 /uL (0-900); Monocytes Percent Auto 7.6 % (3-14); Neutrophils Absolute Auto 16300 /uL (1500-7000); Neutrophils Percent Auto 87.6 % (50-75); Platelet Count 307 X10^3/uL (150-400); Red Blood Cell Count 4.53 X10^6/uL (4.0-5.2); Red Cell Distribution Width 18.4 % (11.6-14.8); White Blood Cell Count 18.6 X10^3/uL (4.5-11.0)
== END ==
PROVIDERS: Family Provider Internal Medicine; PCP Internal Medicine; Referring Provider Internal Medicine Pulmonary Disease; Visit Provider Internal Medicine Pulmonary Disease
DX: R10.9 Unspecified abdominal pain (principal); C79.9 Secondary malignant neoplasm of unspecified site
CPT/HCPCS: 36415; 80053; 82140; 85025; 85610